=== PATIENT | male | born 1990 | race Caucasian/White ===

== ENCOUNTER 2018-02-27 15:20 | Inpatient (IN) | payer OTHER, MEDICAID ==
[~2018-02-27] VITALS: Ht 167.6 cm; Wt 79.8 kg
[2018-02-27] MEDS ORDERED: DOCUSATE SODIUM 283 MG/5 ML MINI-ENEMA PR PRN (16:45)
[2018-02-27] MEDS ORDERED: ACETAMINOPHEN 325 MG TABLET GT PRN (16:45)
[2018-02-27] MEDS ORDERED: HYPROMELLOSE 0.5% 15 ML OPHTHALMIC SOLUTION OU PRN (17:15)
[2018-02-27 17:25] VITALS: BP 118/77
[2018-02-27 17:27] VITALS: BP 134/68
[2018-02-27] MEDS: BACLOFEN 10 MG TABLET GT SCH (21:25)
[2018-02-27] MEDS: DOCUSATE SODIUM 100 MG CAPSULE GT SCH (21:25)
[2018-02-27] MEDS: SENNA 187 MG TABLET GT SCH (21:25)
[2018-02-27] MEDS: CHLORHEXIDINE GLUCONATE 0.12% 15 ML UDCUP ORAL RINSE PO SCH (21:25)
[2018-02-27 23:15] VITALS: BP 131/77
[2018-02-27 23:42] LABS: APPEARANCE,URINE CLOUDY (CLEAR); BILIRUBIN,URINE NEGATIVE (NEGATIVE); GLUCOSE, URINE (UA) NEGATIVE (NEGATIVE); KETONES,URINE NEGATIVE (NEGATIVE); LEUKOCYTE ESTERASE ,URINE NEGATIVE (NEGATIVE); NITRATE,URINE POSITIVE (NEGATIVE); OCCULT BLOOD,URINE NEGATIVE (NEGATIVE); PROTEIN,URINE NEGATIVE (NEGATIVE); UROBILINOGEN,URINE 0.2 mg/dL (<=1.0)
[2018-02-27 23:53] LABS: RBC,URINE 0-2 /HPF (0-2)
[2018-02-27 23:54] LABS: BACTERIA,URINE Many /HPF (None Seen); SQUAMOUS EPITHELIAL CELL,UR None Seen /LPF (None Seen)
[2018-02-27 23:55] LABS: CALCIUM OXALATE CRYSTALS,UR Few /LPF (None Seen)
[2018-02-28 06:16] LABS: BASOPHILS % (AUTO) 0.5 % (0.0-2.0); EOSINOPHILS % (AUTO) 8.3 % (1.0-6.0); HEMATOCRIT 40.7 % (41-53); HEMOGLOBIN 13.9 g/dL (13.5-17.5); LYMPHOCYTES # (AUTO) 1.5 K/uL (1.0-4.8); LYMPHOCYTES % (AUTO) 19.3 % (22.0-44.0); MEAN CORPUSCULAR HGB CONC 34.1 G/dL (31.0-37.0); MEAN CORPUSCULAR VOLUME 85 fL (80-100); MONOCYTES # (AUTO) 0.5 K/uL (0.1-1.0); MONOCYTES % (AUTO) 6.6 % (2.0-9.0); NEUTROPHILS # (AUTO) 5.1 K/uL (1.8-7.7); NEUTROPHILS % (AUTO) 65.3 % (40.0-70.0); PLATELET COUNT (AUTO) 193 K/uL (150-450); RED BLOOD CELL COUNT(AUTO) 4.78 MIL/uL (4.50-5.90); RED CELL DISTRIBUTION WIDTH 14.5 % (11.5-14.5)
[2018-02-28 06:33] LABS: ALANINE AMINOTRANSFERASE 105 U/L (12-78); ALBUMIN 3.3 g/dL (3.4-5.0); ALKALINE PHOSPHATASE 75 U/L (46-116); ANION GAP 9 mmol/L (8-16); ASPARTATE AMINOTRANSFERASE 30 U/L (15-37); BILIRUBIN,TOTAL 0.3 mg/dL (0.1-1.0); CALCIUM, TOTAL 9.2 mg/dL (8.8-10.5); CARBON DIOXIDE 26 mmol/L (22-29); CHLORIDE 105 mmol/L (98-107); CREATININE 0.66 mg/dL (0.60-1.30); GLOMERULAR FILTR. RATE CALC > 60 mL/min (>60); GLUCOSE,RANDOM 95 mg/dL (70-110); SODIUM SERUM 140 mmol/L (136-145); TOTAL PROTEIN, SERUM 6.9 g/dL (6.4-8.2); UREA NITROGEN, BLOOD 12 mg/dL (7-18)
[2018-02-28 07:21] VITALS: BP 130/74
[2018-02-28] MEDS ORDERED: ASPIRIN 81 MG CHEWABLE TABLET GT SCH (09:00)
[2018-02-28] MEDS ORDERED: ENOXAPARIN SODIUM 30 MG/0.3 ML PF SYRINGE SQ SCH (09:00)
[2018-02-28] MEDS ORDERED: ATORVASTATIN CALCIUM 40 MG TABLET GT SCH (09:00)
[2018-02-28] MEDS: DOCUSATE SODIUM 100 MG CAPSULE GT SCH ×2 (09:30→20:35)
[2018-02-28] MEDS: BACLOFEN 10 MG TABLET GT SCH ×3 (09:31→20:35)
[2018-02-28] MEDS: CHLORHEXIDINE GLUCONATE 0.12% 15 ML UDCUP ORAL RINSE PO SCH ×2 (09:31→20:35)
[2018-02-28] MEDS: ENOXAPARIN SODIUM 40 MG/0.4 ML PF SYRINGE SQ SCH (09:31)
[2018-02-28] MEDS: SULFAMETHOX/TRIMETH DS 800-160 MG/TABLET PO SCH ×2 (14:22→20:35)
[2018-02-28 15:24] VITALS: BP 140/90
[2018-02-28] MEDS: DOCUSATE SODIUM 283 MG/5 ML MINI-ENEMA PR SCH (18:27)
[2018-02-28 20:31] VITALS: BP 131/80
[2018-02-28] MEDS: SENNA 187 MG TABLET GT SCH (20:35)
[2018-02-28] MEDS: COLD CREAM, SKIN EMOLLIENT 340 GM JAR TP SCH (20:35)
[2018-02-28 23:38] VITALS: BP 150/86
[2018-03-01 07:13] VITALS: BP 137/83
[2018-03-01] MEDS ORDERED: BACLOFEN 10 MG TABLET PO SCH (07:45)
[2018-03-01] MEDS ORDERED: DOCUSATE SODIUM 100 MG CAPSULE PO SCH (07:45)
[2018-03-01] MEDS: SULFAMETHOX/TRIMETH DS 800-160 MG/TABLET PO SCH ×2 (08:06→21:12)
[2018-03-01] MEDS: CHLORHEXIDINE GLUCONATE 0.12% 15 ML UDCUP ORAL RINSE PO SCH ×2 (08:07→21:12)
[2018-03-01] MEDS: ATORVASTATIN CALCIUM 40 MG TABLET PO SCH (08:07)
[2018-03-01] MEDS: ASPIRIN 81 MG CHEWABLE TABLET PO SCH (08:07)
[2018-03-01] MEDS: ENOXAPARIN SODIUM 40 MG/0.4 ML PF SYRINGE SQ SCH (08:08)
[2018-03-01] MEDS: COLD CREAM, SKIN EMOLLIENT 340 GM JAR TP SCH ×2 (08:09→21:13)
[2018-03-01 15:35] VITALS: BP 150/84
[2018-03-01] MEDS: BACLOFEN 10 MG TABLET PO SCH ×2 (16:51→21:12)
[2018-03-01] MEDS: DOCUSATE SODIUM 283 MG/5 ML MINI-ENEMA PR SCH (18:41)
[2018-03-01] MEDS ORDERED: CefTRIAXone SODIUM 1 GM in DEXTROSE 5%-WATER 10 ML IV SCH (20:00)
[2018-03-01] MEDS ORDERED: SODIUM CHLORIDE 0.9% 0 ML IV ONE (20:10)
[2018-03-01 21:00] VITALS: BP 130/70
[2018-03-01] MEDS: DOCUSATE SODIUM 250 MG CAPSULE PO SCH (21:12)
[2018-03-01] MEDS: SENNA 187 MG TABLET PO SCH (21:12)
[2018-03-01] MEDS: ACETAMINOPHEN 325 MG TABLET GT PRN (21:13)
[2018-03-01] MEDS: ACETAMINOPHEN 325 MG TABLET PO PRN (22:34)
[2018-03-02 04:00] VITALS: BP 139/81
[2018-03-02 06:39] LABS: LACTIC ACID 0.9 mmol/L (0.4-2.0)
[2018-03-02 07:26] VITALS: BP 134/78
[2018-03-02] MEDS ORDERED: SODIUM CHLORIDE 0.9% 100 ML ONE ×2 (07:58→18:26)
[2018-03-02] MEDS: ENOXAPARIN SODIUM 40 MG/0.4 ML PF SYRINGE SQ SCH (08:15)
[2018-03-02] MEDS: CHLORHEXIDINE GLUCONATE 0.12% 15 ML UDCUP ORAL RINSE PO SCH ×2 (08:15→20:52)
[2018-03-02] MEDS: ATORVASTATIN CALCIUM 40 MG TABLET PO SCH (08:15)
[2018-03-02] MEDS: BACLOFEN 10 MG TABLET PO SCH ×3 (08:16→20:52)
[2018-03-02] MEDS: DOCUSATE SODIUM 250 MG CAPSULE PO SCH ×2 (08:16→21:00)
[2018-03-02] MEDS: ASPIRIN 81 MG CHEWABLE TABLET PO SCH (08:16)
[2018-03-02] MEDS: COLD CREAM, SKIN EMOLLIENT 340 GM JAR TP SCH ×2 (08:17→20:53)
[2018-03-02] MEDS: PIPERACILLIN/TAZO 3.375 GM/D5W 50 ML IV SCH ×3 (09:38→20:52)
[2018-03-02] MEDS ORDERED: SODIUM CHLORIDE 0.9% 500 ML IV ONE (15:54)
[2018-03-02] MEDS: 0.9% SODIUM CHLORIDE 10 ML SYRINGE IVP SCH ×2 (16:08→23:26)
[2018-03-02 16:51] VITALS: BP 134/79
[2018-03-02] MEDS: DOCUSATE SODIUM 283 MG/5 ML MINI-ENEMA PR SCH (18:00)
[2018-03-02] MEDS ORDERED: IOVERSOL 350 MG/ML 100 ML VIAL ONE (18:26)
[2018-03-02] MEDS: SENNA 187 MG TABLET PO SCH (21:00)
[2018-03-02 23:20] VITALS: BP 140/67
[2018-03-03] MEDS: PIPERACILLIN/TAZO 3.375 GM/D5W 50 ML IV SCH ×4 (02:00→19:57)
[2018-03-03] MEDS: ACETAMINOPHEN 325 MG TABLET PO PRN (02:46)
[2018-03-03 06:18] LABS: BASOPHILS % (AUTO) 0.4 % (0.0-2.0); HEMOGLOBIN 13.3 g/dL (13.5-17.5); LYMPHOCYTES # (AUTO) 0.7 K/uL (1.0-4.8); LYMPHOCYTES % (AUTO) 15.4 % (22.0-44.0); MEAN CORPUSCULAR HEMOGLOBIN 28.4 pg (26.0-34.0); MEAN CORPUSCULAR HGB CONC 33.4 G/dL (31.0-37.0); MEAN CORPUSCULAR VOLUME 85 fL (80-100); MONOCYTES # (AUTO) 0.6 K/uL (0.1-1.0); MONOCYTES % (AUTO) 11.7 % (2.0-9.0); NEUTROPHILS # (AUTO) 2.3 K/uL (1.8-7.7); NEUTROPHILS % (AUTO) 46.7 % (40.0-70.0); PLATELET COUNT (AUTO) 179 K/uL (150-450); RED CELL DISTRIBUTION WIDTH 14.3 % (11.5-14.5)
[2018-03-03 06:31] LABS: ALANINE AMINOTRANSFERASE 99 U/L (12-78); ALBUMIN 3.1 g/dL (3.4-5.0); ALKALINE PHOSPHATASE 69 U/L (46-116); ANION GAP 10 mmol/L (8-16); ASPARTATE AMINOTRANSFERASE 38 U/L (15-37); BILIRUBIN,TOTAL 0.3 mg/dL (0.1-1.0); CARBON DIOXIDE 25 mmol/L (22-29); CHLORIDE 105 mmol/L (98-107); CREATININE 0.76 mg/dL (0.60-1.30); GLOMERULAR FILTR. RATE CALC > 60 mL/min (>60); GLUCOSE,RANDOM 99 mg/dL (70-110); POTASSIUM 3.6 mmol/L (3.5-5.1); SODIUM SERUM 140 mmol/L (136-145); TOTAL PROTEIN, SERUM 6.7 g/dL (6.4-8.2); UREA NITROGEN, BLOOD 13 mg/dL (7-18)
[2018-03-03 07:29] LABS: EOSINOPHILS % (AUTO) 25.8 % (1.0-6.0)
[2018-03-03 07:55] VITALS: BP 116/76
[2018-03-03] MEDS: 0.9% SODIUM CHLORIDE 10 ML SYRINGE IVP SCH ×3 (09:28→23:56)
[2018-03-03] MEDS: CHLORHEXIDINE GLUCONATE 0.12% 15 ML UDCUP ORAL RINSE PO SCH ×2 (09:42→19:58)
[2018-03-03] MEDS: BACLOFEN 10 MG TABLET PO SCH ×3 (09:43→20:27)
[2018-03-03] MEDS: DOCUSATE SODIUM 250 MG CAPSULE PO SCH ×2 (09:43→20:27)
[2018-03-03] MEDS: ATORVASTATIN CALCIUM 40 MG TABLET PO SCH (09:43)
[2018-03-03] MEDS: ASPIRIN 81 MG CHEWABLE TABLET PO SCH (09:43)
[2018-03-03] MEDS: ENOXAPARIN SODIUM 40 MG/0.4 ML PF SYRINGE SQ SCH (09:43)
[2018-03-03] MEDS: COLD CREAM, SKIN EMOLLIENT 340 GM JAR TP SCH ×2 (09:45→20:27)
[2018-03-03 15:35] VITALS: BP 127/63
[2018-03-03] MEDS: DOCUSATE SODIUM 283 MG/5 ML MINI-ENEMA PR SCH ×2 (18:00→18:58)
[2018-03-03] MEDS: SENNA 187 MG TABLET PO SCH (20:27)
[2018-03-04 01:20] VITALS: BP 130/62
[2018-03-04] MEDS: PIPERACILLIN/TAZO 3.375 GM/D5W 50 ML IV SCH ×4 (01:25→19:18)
[2018-03-04 07:22] VITALS: BP 136/64
[2018-03-04] MEDS ORDERED: SODIUM CHLORIDE 0.9% 100 ML ONE (08:32)
[2018-03-04] MEDS: ATORVASTATIN CALCIUM 40 MG TABLET PO SCH (08:38)
[2018-03-04] MEDS: 0.9% SODIUM CHLORIDE 10 ML SYRINGE IVP SCH ×2 (08:38→17:05)
[2018-03-04] MEDS: CHLORHEXIDINE GLUCONATE 0.12% 15 ML UDCUP ORAL RINSE PO SCH ×3 (08:38→21:00)
[2018-03-04] MEDS: ENOXAPARIN SODIUM 40 MG/0.4 ML PF SYRINGE SQ SCH (08:38)
[2018-03-04] MEDS: BACLOFEN 10 MG TABLET PO SCH ×3 (08:39→21:01)
[2018-03-04] MEDS: ASPIRIN 81 MG CHEWABLE TABLET PO SCH (08:39)
[2018-03-04] MEDS: DOCUSATE SODIUM 250 MG CAPSULE PO SCH ×2 (08:39→21:01)
[2018-03-04] MEDS: COLD CREAM, SKIN EMOLLIENT 340 GM JAR TP SCH ×2 (08:43→21:01)
[2018-03-04] MEDS: ACETAMINOPHEN 325 MG TABLET GT PRN (11:21)
[2018-03-04 15:50] VITALS: BP 122/73
[2018-03-04] MEDS: DOCUSATE SODIUM 283 MG/5 ML MINI-ENEMA PR SCH (17:05)
[2018-03-04] MEDS: SENNA 187 MG TABLET PO SCH (21:00)
[2018-03-05 01:37] VITALS: BP 115/69
[2018-03-05] MEDS: PIPERACILLIN/TAZO 3.375 GM/D5W 50 ML IV SCH ×2 (01:37→08:50)
[2018-03-05] MEDS: 0.9% SODIUM CHLORIDE 10 ML SYRINGE IVP SCH ×2 (01:37→08:50)
[2018-03-05 07:18] VITALS: BP 141/86
[2018-03-05] MEDS: ENOXAPARIN SODIUM 40 MG/0.4 ML PF SYRINGE SQ SCH (08:50)
[2018-03-05] MEDS: COLD CREAM, SKIN EMOLLIENT 340 GM JAR TP SCH ×2 (08:51→20:59)
[2018-03-05] MEDS: CHLORHEXIDINE GLUCONATE 0.12% 15 ML UDCUP ORAL RINSE PO SCH ×2 (08:51→20:58)
[2018-03-05] MEDS: ATORVASTATIN CALCIUM 40 MG TABLET PO SCH (08:51)
[2018-03-05] MEDS: BACLOFEN 10 MG TABLET PO SCH ×3 (08:51→20:59)
[2018-03-05] MEDS: DOCUSATE SODIUM 250 MG CAPSULE PO SCH ×2 (08:51→20:59)
[2018-03-05] MEDS: ASPIRIN 81 MG CHEWABLE TABLET PO SCH (08:51)
[2018-03-05 16:01] VITALS: BP 126/71
[2018-03-05] MEDS: DOCUSATE SODIUM 283 MG/5 ML MINI-ENEMA PR SCH ×2 (18:00→18:56)
[2018-03-05] MEDS: SENNA 187 MG TABLET PO SCH (20:59)
[2018-03-05] MEDS: SULFAMETHOX/TRIMETH DS 800-160 MG/TABLET PO SCH (20:59)
[2018-03-06] VITALS (7 sets, daily range): BP systolic 106–149; BP diastolic 43–78
[2018-03-06] MEDS: CHLORHEXIDINE GLUCONATE 0.12% 15 ML UDCUP ORAL RINSE PO SCH ×2 (08:07→21:20)
[2018-03-06] MEDS: ACETAMINOPHEN 325 MG TABLET PO PRN ×2 (08:08→16:28)
[2018-03-06] MEDS: SULFAMETHOX/TRIMETH DS 800-160 MG/TABLET PO SCH (08:08)
[2018-03-06] MEDS: BACLOFEN 10 MG TABLET PO SCH ×3 (08:09→21:20)
[2018-03-06] MEDS: DOCUSATE SODIUM 250 MG CAPSULE PO SCH ×2 (08:09→21:20)
[2018-03-06] MEDS: ATORVASTATIN CALCIUM 40 MG TABLET PO SCH (08:09)
[2018-03-06] MEDS: ENOXAPARIN SODIUM 40 MG/0.4 ML PF SYRINGE SQ SCH (08:09)
[2018-03-06] MEDS: COLD CREAM, SKIN EMOLLIENT 340 GM JAR TP SCH ×2 (08:10→21:32)
[2018-03-06] MEDS: ASPIRIN 81 MG CHEWABLE TABLET PO SCH (08:10)
[2018-03-06] MEDS ORDERED: SODIUM CHLORIDE 0.9% 250 ML IV ONE (17:44)
[2018-03-06] MEDS ORDERED: PIPERACILLIN/TAZO 3.375 GM/D5W 50 ML IV SCH (18:00)
[2018-03-06] MEDS: CEFEPIME HCL 2 GM in DEXTROSE 5%-WATER 50 ML IV SCH (20:18)
[2018-03-06] MEDS: SENNA 187 MG TABLET PO SCH (21:20)
[2018-03-06] MEDS: DOCUSATE SODIUM 283 MG/5 ML MINI-ENEMA PR SCH (21:32)
[2018-03-06] MEDS: MetroNIDAZOLE 500 MG TABLET PO SCH (23:49)
[2018-03-07] MEDS: CEFEPIME HCL 2 GM in DEXTROSE 5%-WATER 50 ML IV SCH ×3 (03:04→19:38)
[2018-03-07 06:16] LABS: BASOPHILS % (AUTO) 0.2 % (0.0-2.0); EOSINOPHILS % (AUTO) 13.2 % (1.0-6.0); HEMATOCRIT 41.8 % (41-53); HEMOGLOBIN 14.1 g/dL (13.5-17.5); LYMPHOCYTES # (AUTO) 0.8 K/uL (1.0-4.8); LYMPHOCYTES % (AUTO) 10.4 % (22.0-44.0); MEAN CORPUSCULAR HEMOGLOBIN 28.8 pg (26.0-34.0); MEAN CORPUSCULAR HGB CONC 33.6 G/dL (31.0-37.0); MEAN CORPUSCULAR VOLUME 86 fL (80-100); MONOCYTES # (AUTO) 0.6 K/uL (0.1-1.0); MONOCYTES % (AUTO) 7.8 % (2.0-9.0); NEUTROPHILS % (AUTO) 68.4 % (40.0-70.0); PLATELET COUNT (AUTO) 170 K/uL (150-450); RED BLOOD CELL COUNT(AUTO) 4.88 MIL/uL (4.50-5.90); RED CELL DISTRIBUTION WIDTH 14.5 % (11.5-14.5)
[2018-03-07 06:37] LABS: ALANINE AMINOTRANSFERASE 130 U/L (12-78); ALBUMIN 3.2 g/dL (3.4-5.0); ALKALINE PHOSPHATASE 63 U/L (46-116); ANION GAP 11 mmol/L (8-16); ASPARTATE AMINOTRANSFERASE 47 U/L (15-37); BILIRUBIN,TOTAL 0.5 mg/dL (0.1-1.0); CALCIUM, TOTAL 8.7 mg/dL (8.8-10.5); CARBON DIOXIDE 24 mmol/L (22-29); CHLORIDE 102 mmol/L (98-107); CREATININE 0.65 mg/dL (0.60-1.30); GLOMERULAR FILTR. RATE CALC > 60 mL/min (>60); GLUCOSE,RANDOM 113 mg/dL (70-110); POTASSIUM 3.4 mmol/L (3.5-5.1); SODIUM SERUM 137 mmol/L (136-145); TOTAL PROTEIN, SERUM 6.8 g/dL (6.4-8.2); UREA NITROGEN, BLOOD 8 mg/dL (7-18)
[2018-03-07 07:11] VITALS: BP 127/75
[2018-03-07] MEDS: CHLORHEXIDINE GLUCONATE 0.12% 15 ML UDCUP ORAL RINSE PO SCH ×2 (08:52→20:18)
[2018-03-07] MEDS: BACLOFEN 10 MG TABLET PO SCH ×3 (08:52→20:18)
[2018-03-07] MEDS: ATORVASTATIN CALCIUM 40 MG TABLET PO SCH (08:53)
[2018-03-07] MEDS: ASPIRIN 81 MG CHEWABLE TABLET PO SCH (08:53)
[2018-03-07] MEDS: MetroNIDAZOLE 500 MG TABLET PO SCH ×3 (08:53→23:20)
[2018-03-07] MEDS: COLD CREAM, SKIN EMOLLIENT 340 GM JAR TP SCH ×2 (08:53→20:19)
[2018-03-07] MEDS: DOCUSATE SODIUM 250 MG CAPSULE PO SCH ×2 (08:53→20:18)
[2018-03-07] MEDS: ENOXAPARIN SODIUM 40 MG/0.4 ML PF SYRINGE SQ SCH (08:53)
[2018-03-07] MEDS ORDERED: POTASSIUM CHLORIDE 20 MEQ ER TABLET PO ONE (14:00)
[2018-03-07 16:25] VITALS: BP 141/82
[2018-03-07] MEDS: DOCUSATE SODIUM 283 MG/5 ML MINI-ENEMA PR SCH (19:17)
[2018-03-07] MEDS: SENNA 187 MG TABLET PO SCH (20:18)
[2018-03-08 00:48] VITALS: BP 111/72
[2018-03-08] MEDS: CEFEPIME HCL 2 GM in DEXTROSE 5%-WATER 50 ML IV SCH ×3 (03:18→20:27)
[2018-03-08 07:13] VITALS: BP 147/82
[2018-03-08] MEDS: ENOXAPARIN SODIUM 40 MG/0.4 ML PF SYRINGE SQ SCH (09:01)
[2018-03-08] MEDS: DOCUSATE SODIUM 250 MG CAPSULE PO SCH ×2 (09:01→20:27)
[2018-03-08] MEDS: ATORVASTATIN CALCIUM 40 MG TABLET PO SCH (09:01)
[2018-03-08] MEDS: CHLORHEXIDINE GLUCONATE 0.12% 15 ML UDCUP ORAL RINSE PO SCH ×2 (09:01→20:27)
[2018-03-08] MEDS: BACLOFEN 10 MG TABLET PO SCH ×3 (09:02→20:27)
[2018-03-08] MEDS: ASPIRIN 81 MG CHEWABLE TABLET PO SCH (09:02)
[2018-03-08] MEDS: MetroNIDAZOLE 500 MG TABLET PO SCH ×3 (09:02→20:27)
[2018-03-08] MEDS: COLD CREAM, SKIN EMOLLIENT 340 GM JAR TP SCH ×2 (09:02→20:28)
[2018-03-08 16:02] VITALS: BP 141/77
[2018-03-08] MEDS: DOCUSATE SODIUM 283 MG/5 ML MINI-ENEMA PR SCH (19:15)
[2018-03-08] MEDS: SENNA 187 MG TABLET PO SCH (20:27)
[2018-03-09 01:00] VITALS: BP 125/71
[2018-03-09] MEDS: CEFEPIME HCL 2 GM in DEXTROSE 5%-WATER 50 ML IV SCH ×3 (03:16→19:40)
[2018-03-09 07:40] VITALS: BP 117/61
[2018-03-09] MEDS: MetroNIDAZOLE 500 MG TABLET PO SCH ×3 (09:22→20:49)
[2018-03-09] MEDS: CHLORHEXIDINE GLUCONATE 0.12% 15 ML UDCUP ORAL RINSE PO SCH ×2 (09:22→20:49)
[2018-03-09] MEDS: ENOXAPARIN SODIUM 40 MG/0.4 ML PF SYRINGE SQ SCH (09:22)
[2018-03-09] MEDS: DOCUSATE SODIUM 250 MG CAPSULE PO SCH ×2 (09:23→20:49)
[2018-03-09] MEDS: ATORVASTATIN CALCIUM 40 MG TABLET PO SCH (09:23)
[2018-03-09] MEDS: BACLOFEN 10 MG TABLET PO SCH ×3 (09:23→20:49)
[2018-03-09] MEDS: COLD CREAM, SKIN EMOLLIENT 340 GM JAR TP SCH ×2 (09:24→20:50)
[2018-03-09] MEDS: ASPIRIN 81 MG CHEWABLE TABLET PO SCH (09:24)
[2018-03-09] MEDS: ACETAMINOPHEN 325 MG TABLET GT PRN (10:16)
[2018-03-09] MEDS ORDERED: SODIUM CHLORIDE 0.9% 0 ML IV ONE (12:30)
[2018-03-09 15:06] VITALS: BP 141/60
[2018-03-09] MEDS ORDERED: SODIUM CHLORIDE 0.9% 100 ML ONE (16:04)
[2018-03-09] MEDS: DOCUSATE SODIUM 283 MG/5 ML MINI-ENEMA PR SCH (19:10)
[2018-03-09] MEDS: SENNA 187 MG TABLET PO SCH (20:50)
[2018-03-10 02:20] VITALS: BP 133/79
[2018-03-10] MEDS: CEFEPIME HCL 2 GM in DEXTROSE 5%-WATER 50 ML IV SCH ×3 (02:38→19:43)
[2018-03-10 07:55] VITALS: BP 121/59
[2018-03-10] MEDS: ASPIRIN 81 MG CHEWABLE TABLET PO SCH (08:18)
[2018-03-10] MEDS: BACLOFEN 10 MG TABLET PO SCH ×3 (08:18→20:26)
[2018-03-10] MEDS: ATORVASTATIN CALCIUM 40 MG TABLET PO SCH (08:18)
[2018-03-10] MEDS: DOCUSATE SODIUM 250 MG CAPSULE PO SCH ×2 (08:20→20:26)
[2018-03-10] MEDS: ENOXAPARIN SODIUM 40 MG/0.4 ML PF SYRINGE SQ SCH (08:20)
[2018-03-10] MEDS: MetroNIDAZOLE 500 MG TABLET PO SCH ×3 (08:20→20:26)
[2018-03-10] MEDS: CHLORHEXIDINE GLUCONATE 0.12% 15 ML UDCUP ORAL RINSE PO SCH ×2 (08:20→20:26)
[2018-03-10] MEDS: COLD CREAM, SKIN EMOLLIENT 340 GM JAR TP SCH ×2 (08:21→20:27)
[2018-03-10 15:09] VITALS: BP 118/66
[2018-03-10] MEDS: 0.9% SODIUM CHLORIDE 10 ML SYRINGE IVP SCH ×3 (16:00→23:15)
[2018-03-10] MEDS ORDERED: SODIUM CHLORIDE 0.9% 100 ML ONE (18:27)
[2018-03-10] MEDS: DOCUSATE SODIUM 283 MG/5 ML MINI-ENEMA PR SCH (18:34)
[2018-03-10] MEDS: SENNA 187 MG TABLET PO SCH (20:26)
[2018-03-11 00:05] VITALS: BP 110/65
[2018-03-11] MEDS: CEFEPIME HCL 2 GM in DEXTROSE 5%-WATER 50 ML IV SCH ×3 (03:12→19:45)
[2018-03-11 07:58] VITALS: BP 113/63
[2018-03-11 08:02] LABS: CHOL/HDL RATIO 2.3 (4.2-7.3)
[2018-03-11] MEDS: MetroNIDAZOLE 500 MG TABLET PO SCH ×3 (08:31→20:48)
[2018-03-11] MEDS: DOCUSATE SODIUM 250 MG CAPSULE PO SCH (08:31)
[2018-03-11] MEDS: ATORVASTATIN CALCIUM 40 MG TABLET PO SCH (08:31)
[2018-03-11] MEDS: ENOXAPARIN SODIUM 40 MG/0.4 ML PF SYRINGE SQ SCH (08:31)
[2018-03-11] MEDS: ASPIRIN 81 MG CHEWABLE TABLET PO SCH (08:32)
[2018-03-11] MEDS: CHLORHEXIDINE GLUCONATE 0.12% 15 ML UDCUP ORAL RINSE PO SCH ×2 (08:32→20:48)
[2018-03-11] MEDS: BACLOFEN 10 MG TABLET PO SCH ×3 (08:32→20:48)
[2018-03-11] MEDS: ACETAMINOPHEN 325 MG TABLET PO PRN (08:33)
[2018-03-11] MEDS: COLD CREAM, SKIN EMOLLIENT 340 GM JAR TP SCH ×2 (08:33→20:49)
[2018-03-11] MEDS: 0.9% SODIUM CHLORIDE 10 ML SYRINGE IVP SCH ×3 (08:36→23:58)
[2018-03-11 15:43] VITALS: BP 127/76
[2018-03-11] MEDS ORDERED: SODIUM CHLORIDE 0.9% 100 ML ONE (18:33)
[2018-03-11] MEDS: DOCUSATE SODIUM 283 MG/5 ML MINI-ENEMA PR SCH (18:39)
[2018-03-11] MEDS: DOCUSATE SODIUM 100 MG CAPSULE PO SCH (20:48)
[2018-03-12 00:30] VITALS: BP 117/65
[2018-03-12] MEDS: ACETAMINOPHEN 325 MG TABLET PO PRN ×3 (00:31→14:48)
[2018-03-12 07:12] LABS: ALANINE AMINOTRANSFERASE 274 U/L (12-78); ALBUMIN 3.4 g/dL (3.4-5.0); ALKALINE PHOSPHATASE 63 U/L (46-116); ANION GAP 9 mmol/L (8-16); ASPARTATE AMINOTRANSFERASE 93 U/L (15-37); BILIRUBIN,TOTAL 0.4 mg/dL (0.1-1.0); CALCIUM, TOTAL 9.1 mg/dL (8.8-10.5); CARBON DIOXIDE 26 mmol/L (22-29); CHLORIDE 106 mmol/L (98-107); CREATININE 0.62 mg/dL (0.60-1.30); GLOMERULAR FILTR. RATE CALC > 60 mL/min (>60); GLUCOSE,RANDOM 100 mg/dL (70-110); POTASSIUM 3.9 mmol/L (3.5-5.1); SODIUM SERUM 141 mmol/L (136-145); TOTAL PROTEIN, SERUM 6.7 g/dL (6.4-8.2); UREA NITROGEN, BLOOD 9 mg/dL (7-18)
[2018-03-12 07:25] VITALS: BP 133/73
[2018-03-12] MEDS: ATORVASTATIN CALCIUM 40 MG TABLET PO SCH (09:10)
[2018-03-12] MEDS: DOCUSATE SODIUM 100 MG CAPSULE PO SCH ×2 (09:10→21:06)
[2018-03-12] MEDS: ASPIRIN 81 MG CHEWABLE TABLET PO SCH (09:11)
[2018-03-12] MEDS: CHLORHEXIDINE GLUCONATE 0.12% 15 ML UDCUP ORAL RINSE PO SCH ×2 (09:12→21:06)
[2018-03-12] MEDS: 0.9% SODIUM CHLORIDE 10 ML SYRINGE IVP SCH ×2 (09:12→16:27)
[2018-03-12] MEDS: ENOXAPARIN SODIUM 40 MG/0.4 ML PF SYRINGE SQ SCH (09:12)
[2018-03-12] MEDS: BACLOFEN 10 MG TABLET PO SCH ×3 (09:13→21:06)
[2018-03-12] MEDS: COLD CREAM, SKIN EMOLLIENT 340 GM JAR TP SCH ×2 (09:13→21:06)
[2018-03-12 15:12] VITALS: BP 122/73
[2018-03-12] MEDS: DICLOFENAC SODIUM 1% 100 GM GEL [4GM] TP SCH ×2 (16:16→21:06)
[2018-03-12] MEDS: DOCUSATE SODIUM 283 MG/5 ML MINI-ENEMA PR SCH (18:48)
[2018-03-13] MEDS: 0.9% SODIUM CHLORIDE 10 ML SYRINGE IVP SCH ×4 (01:21→23:43)
[2018-03-13 01:25] VITALS: BP 118/63
[2018-03-13 07:35] VITALS: BP 121/64
[2018-03-13] MEDS: BACLOFEN 10 MG TABLET PO SCH ×3 (08:18→20:16)
[2018-03-13] MEDS: ENOXAPARIN SODIUM 40 MG/0.4 ML PF SYRINGE SQ SCH (08:18)
[2018-03-13] MEDS: DOCUSATE SODIUM 100 MG CAPSULE PO SCH (08:19)
[2018-03-13] MEDS: ATORVASTATIN CALCIUM 40 MG TABLET PO SCH (08:19)
[2018-03-13] MEDS: COLD CREAM, SKIN EMOLLIENT 340 GM JAR TP SCH ×2 (08:19→20:16)
[2018-03-13] MEDS: CHLORHEXIDINE GLUCONATE 0.12% 15 ML UDCUP ORAL RINSE PO SCH ×2 (08:19→20:15)
[2018-03-13] MEDS: DICLOFENAC SODIUM 1% 100 GM GEL [4GM] TP SCH ×3 (08:19→20:16)
[2018-03-13] MEDS: ASPIRIN 81 MG CHEWABLE TABLET PO SCH (08:19)
[2018-03-13 15:39] VITALS: BP 127/70
[2018-03-13] MEDS: ACETAMINOPHEN 325 MG TABLET GT PRN ×2 (16:08→21:49)
[2018-03-13] MEDS: ACETAMINOPHEN 325 MG TABLET PO PRN (16:36)
[2018-03-13] MEDS: DOCUSATE SODIUM 283 MG/5 ML MINI-ENEMA PR SCH (18:43)
[2018-03-14] VITALS: BP 121/58
[2018-03-14 07:34] VITALS: BP 127/76
[2018-03-14] MEDS: POLYETHYLENE GLYCOL 3350 17 GM PACKET PO SCH (08:42)
[2018-03-14] MEDS: DICLOFENAC SODIUM 1% 100 GM GEL [4GM] TP SCH ×3 (08:42→20:22)
[2018-03-14] MEDS: CHLORHEXIDINE GLUCONATE 0.12% 15 ML UDCUP ORAL RINSE PO SCH ×2 (08:43→20:22)
[2018-03-14] MEDS: DOCUSATE SODIUM 100 MG CAPSULE PO SCH (08:43)
[2018-03-14] MEDS: ATORVASTATIN CALCIUM 40 MG TABLET PO SCH (08:43)
[2018-03-14] MEDS: ASPIRIN 81 MG CHEWABLE TABLET PO SCH (08:43)
[2018-03-14] MEDS: BACLOFEN 10 MG TABLET PO SCH ×3 (08:43→20:22)
[2018-03-14] MEDS: COLD CREAM, SKIN EMOLLIENT 340 GM JAR TP SCH ×2 (08:44→20:22)
[2018-03-14] MEDS: ENOXAPARIN SODIUM 40 MG/0.4 ML PF SYRINGE SQ SCH (08:46)
[2018-03-14 15:25] VITALS: BP 107/77
[2018-03-14] MEDS: ACETAMINOPHEN 325 MG TABLET GT PRN (15:43)
[2018-03-14] MEDS: DOCUSATE SODIUM 283 MG/5 ML MINI-ENEMA PR SCH (18:30)
[2018-03-15 00:52] VITALS: BP 123/72
[2018-03-15 07:20] VITALS: BP 132/65
[2018-03-15] MEDS: DOCUSATE SODIUM 100 MG CAPSULE PO SCH (09:00)
[2018-03-15] MEDS: POLYETHYLENE GLYCOL 3350 17 GM PACKET PO SCH (09:00)
[2018-03-15] MEDS: ATORVASTATIN CALCIUM 40 MG TABLET PO SCH (09:01)
[2018-03-15] MEDS: ENOXAPARIN SODIUM 40 MG/0.4 ML PF SYRINGE SQ SCH (09:01)
[2018-03-15] MEDS: ASPIRIN 81 MG CHEWABLE TABLET PO SCH (09:01)
[2018-03-15] MEDS: CHLORHEXIDINE GLUCONATE 0.12% 15 ML UDCUP ORAL RINSE PO SCH ×2 (09:02→20:37)
[2018-03-15] MEDS: BACLOFEN 10 MG TABLET PO SCH ×3 (09:02→20:37)
[2018-03-15] MEDS: DICLOFENAC SODIUM 1% 100 GM GEL [4GM] TP SCH ×3 (09:02→20:38)
[2018-03-15] MEDS: COLD CREAM, SKIN EMOLLIENT 340 GM JAR TP SCH ×2 (09:02→20:38)
[2018-03-15 16:11] VITALS: BP 124/77
[2018-03-15] MEDS: DOCUSATE SODIUM 283 MG/5 ML MINI-ENEMA PR SCH (19:41)
[2018-03-16] VITALS: BP 121/65
[2018-03-16 07:15] VITALS: BP 120/73
[2018-03-16] MEDS: DOCUSATE SODIUM 100 MG CAPSULE PO SCH (07:58)
[2018-03-16] MEDS: POLYETHYLENE GLYCOL 3350 17 GM PACKET PO SCH (07:58)
[2018-03-16] MEDS: COLD CREAM, SKIN EMOLLIENT 340 GM JAR TP SCH ×2 (07:59→20:21)
[2018-03-16] MEDS: CHLORHEXIDINE GLUCONATE 0.12% 15 ML UDCUP ORAL RINSE PO SCH ×2 (07:59→20:20)
[2018-03-16] MEDS: ATORVASTATIN CALCIUM 40 MG TABLET PO SCH (07:59)
[2018-03-16] MEDS: BACLOFEN 10 MG TABLET PO SCH ×3 (07:59→20:21)
[2018-03-16] MEDS: ASPIRIN 81 MG CHEWABLE TABLET PO SCH (07:59)
[2018-03-16] MEDS: ENOXAPARIN SODIUM 40 MG/0.4 ML PF SYRINGE SQ SCH (08:00)
[2018-03-16] MEDS: DICLOFENAC SODIUM 1% 100 GM GEL [4GM] TP SCH ×3 (08:00→20:21)
[2018-03-16 15:00] VITALS: BP 118/65
[2018-03-16] MEDS: ACETAMINOPHEN 325 MG TABLET GT PRN (17:19)
[2018-03-16] MEDS: DOCUSATE SODIUM 283 MG/5 ML MINI-ENEMA PR SCH (19:16)
[2018-03-16 20:30] VITALS: BP 120/76
[2018-03-16] MEDS: ACETAMINOPHEN 325 MG TABLET PO PRN (20:32)
[2018-03-17 06:07] VITALS: BP 128/82
[2018-03-17 06:41] LABS: ALANINE AMINOTRANSFERASE 346 U/L (12-78); ALBUMIN 3.6 g/dL (3.4-5.0); ALKALINE PHOSPHATASE 62 U/L (46-116); ANION GAP 9 mmol/L (8-16); ASPARTATE AMINOTRANSFERASE 76 U/L (15-37); BILIRUBIN,TOTAL 0.5 mg/dL (0.1-1.0); CALCIUM, TOTAL 9.5 mg/dL (8.8-10.5); CARBON DIOXIDE 29 mmol/L (22-29); CHLORIDE 104 mmol/L (98-107); CREATININE 0.68 mg/dL (0.60-1.30); GLOMERULAR FILTR. RATE CALC > 60 mL/min (>60); GLUCOSE,RANDOM 90 mg/dL (70-110); POTASSIUM 3.8 mmol/L (3.5-5.1); SODIUM SERUM 142 mmol/L (136-145); TOTAL PROTEIN, SERUM 7.1 g/dL (6.4-8.2); UREA NITROGEN, BLOOD 11 mg/dL (7-18)
[2018-03-17 06:47] LABS: PROTHROMBIN TIME 10.8 SEC (9.4-11.6)
[2018-03-17 07:52] VITALS: BP 150/80
[2018-03-17] MEDS: ENOXAPARIN SODIUM 40 MG/0.4 ML PF SYRINGE SQ SCH (08:12)
[2018-03-17] MEDS: CHLORHEXIDINE GLUCONATE 0.12% 15 ML UDCUP ORAL RINSE PO SCH ×2 (08:12→20:18)
[2018-03-17] MEDS: BACLOFEN 10 MG TABLET PO SCH ×3 (08:13→20:19)
[2018-03-17] MEDS: POLYETHYLENE GLYCOL 3350 17 GM PACKET PO SCH (08:13)
[2018-03-17] MEDS: ATORVASTATIN CALCIUM 40 MG TABLET PO SCH (08:13)
[2018-03-17] MEDS: DOCUSATE SODIUM 100 MG CAPSULE PO SCH (08:14)
[2018-03-17] MEDS: NAPROXEN 375 MG TABLET PO SCH ×2 (08:14→13:11)
[2018-03-17] MEDS: ASPIRIN 81 MG CHEWABLE TABLET PO SCH (08:14)
[2018-03-17] MEDS: COLD CREAM, SKIN EMOLLIENT 340 GM JAR TP SCH ×2 (08:15→20:18)
[2018-03-17] MEDS: DICLOFENAC SODIUM 1% 100 GM GEL [4GM] TP SCH ×3 (08:15→20:18)
[2018-03-17] MEDS ORDERED: ATORVASTATIN CALCIUM 20 MG TABLET PO ONE (10:00)
[2018-03-17 15:36] VITALS: BP 123/66
[2018-03-17] MEDS: DOCUSATE SODIUM 283 MG/5 ML MINI-ENEMA PR SCH (19:27)
[2018-03-17] MEDS: ATORVASTATIN CALCIUM 20 MG TABLET PO SCH (21:29)
[2018-03-18] VITALS: BP 116/73
[2018-03-18 07:10] VITALS: BP 116/77
[2018-03-18] MEDS: NAPROXEN 375 MG TABLET PO SCH ×2 (08:28→11:03)
[2018-03-18] MEDS: CHLORHEXIDINE GLUCONATE 0.12% 15 ML UDCUP ORAL RINSE PO SCH ×2 (08:28→20:53)
[2018-03-18] MEDS: BACLOFEN 10 MG TABLET PO SCH ×3 (08:28→20:53)
[2018-03-18] MEDS: ASPIRIN 81 MG CHEWABLE TABLET PO SCH (08:28)
[2018-03-18] MEDS: POLYETHYLENE GLYCOL 3350 17 GM PACKET PO SCH ×2 (08:28→09:00)
[2018-03-18] MEDS: DICLOFENAC SODIUM 1% 100 GM GEL [4GM] TP SCH ×3 (08:28→20:53)
[2018-03-18] MEDS: DOCUSATE SODIUM 100 MG CAPSULE PO SCH (08:28)
[2018-03-18] MEDS: COLD CREAM, SKIN EMOLLIENT 340 GM JAR TP SCH ×2 (08:29→20:54)
[2018-03-18] MEDS: ENOXAPARIN SODIUM 40 MG/0.4 ML PF SYRINGE SQ SCH (08:30)
[2018-03-18] MEDS ORDERED: SODIUM CHLORIDE 0.9% 1,000 ML IV ONE ×3 (11:00→11:54)
[2018-03-18 13:30] VITALS: BP 122/82
[2018-03-18 15:38] VITALS: BP 120/83
[2018-03-18] MEDS: DOCUSATE SODIUM 283 MG/5 ML MINI-ENEMA PR SCH (18:24)
[2018-03-18] MEDS: ATORVASTATIN CALCIUM 20 MG TABLET PO SCH (20:53)
[2018-03-19] VITALS: BP 121/65
[2018-03-19 08:03] VITALS: BP 133/62
[2018-03-19] MEDS: NAPROXEN 375 MG TABLET PO SCH ×2 (08:05→12:34)
[2018-03-19] MEDS: DOCUSATE SODIUM 100 MG CAPSULE PO SCH (08:06)
[2018-03-19] MEDS: BACLOFEN 10 MG TABLET PO SCH ×3 (08:06→20:32)
[2018-03-19] MEDS: ASPIRIN 81 MG CHEWABLE TABLET PO SCH (08:06)
[2018-03-19] MEDS: POLYETHYLENE GLYCOL 3350 17 GM PACKET PO SCH (08:07)
[2018-03-19] MEDS: ENOXAPARIN SODIUM 40 MG/0.4 ML PF SYRINGE SQ SCH (08:07)
[2018-03-19] MEDS: CHLORHEXIDINE GLUCONATE 0.12% 15 ML UDCUP ORAL RINSE PO SCH ×2 (08:07→20:32)
[2018-03-19] MEDS: COLD CREAM, SKIN EMOLLIENT 340 GM JAR TP SCH ×2 (09:53→20:32)
[2018-03-19] MEDS: DICLOFENAC SODIUM 1% 100 GM GEL [4GM] TP SCH ×3 (09:53→20:33)
[2018-03-19] MEDS: OMEPRAZOLE 10 MG CAPSULE PO SCH (11:30)
[2018-03-19] MEDS ORDERED: OMEPRAZOLE 20 MG CAPSULE PO ONE (12:00)
[2018-03-19 15:58] VITALS: BP 110/79
[2018-03-19] MEDS: DOCUSATE SODIUM 283 MG/5 ML MINI-ENEMA PR SCH (18:26)
[2018-03-20 05:00] VITALS: BP 111/64
[2018-03-20 07:25] VITALS: BP 117/62
[2018-03-20] MEDS: POLYETHYLENE GLYCOL 3350 17 GM PACKET PO SCH (08:21)
[2018-03-20] MEDS: NAPROXEN 375 MG TABLET PO SCH ×2 (08:21→12:30)
[2018-03-20] MEDS: ENOXAPARIN SODIUM 40 MG/0.4 ML PF SYRINGE SQ SCH (08:21)
[2018-03-20] MEDS: DOCUSATE SODIUM 100 MG CAPSULE PO SCH (08:22)
[2018-03-20] MEDS: DICLOFENAC SODIUM 1% 100 GM GEL [4GM] TP SCH ×3 (08:22→21:20)
[2018-03-20] MEDS: BACLOFEN 10 MG TABLET PO SCH ×3 (08:22→21:20)
[2018-03-20] MEDS: ASPIRIN 81 MG CHEWABLE TABLET PO SCH (08:22)
[2018-03-20] MEDS: COLD CREAM, SKIN EMOLLIENT 340 GM JAR TP SCH ×2 (08:23→21:20)
[2018-03-20] MEDS: CHLORHEXIDINE GLUCONATE 0.12% 15 ML UDCUP ORAL RINSE PO SCH ×2 (08:23→21:20)
[2018-03-20] MEDS: ACETAMINOPHEN 325 MG TABLET PO PRN (09:40)
[2018-03-20] MEDS: OMEPRAZOLE 10 MG CAPSULE PO SCH (12:29)
[2018-03-20 15:25] VITALS: BP 121/66
[2018-03-20] MEDS: ACETAMINOPHEN 325 MG TABLET GT PRN (16:38)
[2018-03-20] MEDS: DOCUSATE SODIUM 283 MG/5 ML MINI-ENEMA PR SCH (20:19)
[2018-03-20 23:39] VITALS: BP 118/69
[2018-03-21 06:48] LABS: ALANINE AMINOTRANSFERASE 211 U/L (12-78); ALBUMIN 3.3 g/dL (3.4-5.0); ALKALINE PHOSPHATASE 61 U/L (46-116); ANION GAP 7 mmol/L (8-16); ASPARTATE AMINOTRANSFERASE 49 U/L (15-37); BILIRUBIN,TOTAL 0.3 mg/dL (0.1-1.0); CARBON DIOXIDE 27 mmol/L (22-29); CHLORIDE 108 mmol/L (98-107); CREATININE 0.62 mg/dL (0.60-1.30); GLOMERULAR FILTR. RATE CALC > 60 mL/min (>60); GLUCOSE,RANDOM 91 mg/dL (70-110); POTASSIUM 3.9 mmol/L (3.5-5.1); SODIUM SERUM 142 mmol/L (136-145); TOTAL PROTEIN, SERUM 6.4 g/dL (6.4-8.2); UREA NITROGEN, BLOOD 10 mg/dL (7-18)
[2018-03-21 07:13] VITALS: BP 111/61
[2018-03-21] MEDS: OMEPRAZOLE 10 MG CAPSULE PO SCH (08:15)
[2018-03-21] MEDS: NAPROXEN 375 MG TABLET PO SCH ×2 (08:15→12:22)
[2018-03-21] MEDS: ENOXAPARIN SODIUM 40 MG/0.4 ML PF SYRINGE SQ SCH (08:15)
[2018-03-21] MEDS: POLYETHYLENE GLYCOL 3350 17 GM PACKET PO SCH (08:15)
[2018-03-21] MEDS: BACLOFEN 10 MG TABLET PO SCH ×3 (08:16→20:55)
[2018-03-21] MEDS: DOCUSATE SODIUM 100 MG CAPSULE PO SCH (08:16)
[2018-03-21] MEDS: ASPIRIN 81 MG CHEWABLE TABLET PO SCH (08:16)
[2018-03-21] MEDS: DICLOFENAC SODIUM 1% 100 GM GEL [4GM] TP SCH ×3 (08:17→20:55)
[2018-03-21] MEDS: COLD CREAM, SKIN EMOLLIENT 340 GM JAR TP SCH ×2 (08:17→20:55)
[2018-03-21] MEDS: CHLORHEXIDINE GLUCONATE 0.12% 15 ML UDCUP ORAL RINSE PO SCH ×2 (08:17→20:55)
[2018-03-21] MEDS: ACETAMINOPHEN 325 MG TABLET PO PRN (08:24)
[2018-03-21 15:20] VITALS: BP 143/92
[2018-03-21] MEDS: ACETAMINOPHEN 325 MG TABLET GT PRN (18:17)
[2018-03-21] MEDS: DOCUSATE SODIUM 283 MG/5 ML MINI-ENEMA PR SCH (18:38)
[2018-03-22 05:00] VITALS: BP 114/60
[2018-03-22 07:14] VITALS: BP 118/69
[2018-03-22] MEDS: DICLOFENAC SODIUM 1% 100 GM GEL [4GM] TP SCH ×3 (08:01→20:44)
[2018-03-22] MEDS: NAPROXEN 375 MG TABLET PO SCH ×2 (08:02→12:40)
[2018-03-22] MEDS: OMEPRAZOLE 10 MG CAPSULE PO SCH (08:03)
[2018-03-22] MEDS: ASPIRIN 81 MG CHEWABLE TABLET PO SCH (08:05)
[2018-03-22] MEDS: CHLORHEXIDINE GLUCONATE 0.12% 15 ML UDCUP ORAL RINSE PO SCH ×2 (08:05→20:44)
[2018-03-22] MEDS: ENOXAPARIN SODIUM 40 MG/0.4 ML PF SYRINGE SQ SCH (08:05)
[2018-03-22] MEDS: BACLOFEN 10 MG TABLET PO SCH ×3 (08:06→20:43)
[2018-03-22] MEDS: COLD CREAM, SKIN EMOLLIENT 340 GM JAR TP SCH ×2 (08:06→20:44)
[2018-03-22] MEDS: ACETAMINOPHEN 325 MG TABLET PO PRN ×2 (14:17→21:48)
[2018-03-22 15:17] VITALS: BP 127/76
[2018-03-22] MEDS: POLYETHYLENE GLYCOL 3350 17 GM PACKET PO SCH (16:16)
[2018-03-22] MEDS: DOCUSATE SODIUM 283 MG/5 ML MINI-ENEMA PR SCH (19:14)
[2018-03-23 06:05] VITALS: BP 104/79
[2018-03-23 07:33] VITALS: BP 110/61
[2018-03-23] MEDS: BACLOFEN 10 MG TABLET PO SCH ×3 (08:37→21:24)
[2018-03-23] MEDS: CHLORHEXIDINE GLUCONATE 0.12% 15 ML UDCUP ORAL RINSE PO SCH ×2 (08:38→21:24)
[2018-03-23] MEDS: ASPIRIN 81 MG CHEWABLE TABLET PO SCH (08:38)
[2018-03-23] MEDS: NAPROXEN 375 MG TABLET PO SCH ×2 (08:39→12:28)
[2018-03-23] MEDS: ENOXAPARIN SODIUM 40 MG/0.4 ML PF SYRINGE SQ SCH (08:39)
[2018-03-23] MEDS: OMEPRAZOLE 10 MG CAPSULE PO SCH (08:45)
[2018-03-23] MEDS: COLD CREAM, SKIN EMOLLIENT 340 GM JAR TP SCH ×2 (08:46→21:24)
[2018-03-23] MEDS: DICLOFENAC SODIUM 1% 100 GM GEL [4GM] TP SCH ×3 (10:58→21:24)
[2018-03-23 16:14] VITALS: BP 122/64
[2018-03-23] MEDS: POLYETHYLENE GLYCOL 3350 17 GM PACKET PO SCH (16:18)
[2018-03-23] MEDS: DOCUSATE SODIUM 283 MG/5 ML MINI-ENEMA PR SCH (18:56)
[2018-03-23 23:45] VITALS: BP 125/71
[2018-03-24 07:15] VITALS: BP 150/82
[2018-03-24] MEDS: NAPROXEN 375 MG TABLET PO SCH ×2 (07:38→12:31)
[2018-03-24] MEDS: DICLOFENAC SODIUM 1% 100 GM GEL [4GM] TP SCH ×3 (09:06→20:28)
[2018-03-24] MEDS: CHLORHEXIDINE GLUCONATE 0.12% 15 ML UDCUP ORAL RINSE PO SCH ×2 (09:07→20:27)
[2018-03-24] MEDS: ASPIRIN 81 MG CHEWABLE TABLET PO SCH (09:07)
[2018-03-24] MEDS: BACLOFEN 10 MG TABLET PO SCH ×3 (09:07→20:27)
[2018-03-24] MEDS: OMEPRAZOLE 10 MG CAPSULE PO SCH (09:07)
[2018-03-24] MEDS: ENOXAPARIN SODIUM 40 MG/0.4 ML PF SYRINGE SQ SCH (09:07)
[2018-03-24] MEDS: COLD CREAM, SKIN EMOLLIENT 340 GM JAR TP SCH ×2 (09:08→20:27)
[2018-03-24 13:35] VITALS: BP 121/70
[2018-03-24 15:20] VITALS: BP 111/77
[2018-03-24] MEDS: POLYETHYLENE GLYCOL 3350 17 GM PACKET PO SCH (15:50)
[2018-03-24] MEDS: DOCUSATE SODIUM 283 MG/5 ML MINI-ENEMA PR SCH (18:36)
[2018-03-24] MEDS: NYSTATIN 15 GM POWDER BOTTLE TP SCH (20:27)
[2018-03-24] MEDS: ACETAMINOPHEN 325 MG TABLET GT PRN (20:38)
[2018-03-25 05:30] VITALS: BP 119/70
[2018-03-25 06:30] LABS: BASOPHILS % (AUTO) 0.4 % (0.0-2.0); EOSINOPHILS % (AUTO) 3.9 % (1.0-6.0); HEMATOCRIT 40.4 % (41-53); HEMOGLOBIN 13.6 g/dL (13.5-17.5); LYMPHOCYTES # (AUTO) 1.7 K/uL (1.0-4.8); LYMPHOCYTES % (AUTO) 32.5 % (22.0-44.0); MEAN CORPUSCULAR HEMOGLOBIN 28.6 pg (26.0-34.0); MEAN CORPUSCULAR HGB CONC 33.6 G/dL (31.0-37.0); MEAN CORPUSCULAR VOLUME 85 fL (80-100); MONOCYTES # (AUTO) 0.4 K/uL (0.1-1.0); MONOCYTES % (AUTO) 8.1 % (2.0-9.0); NEUTROPHILS # (AUTO) 2.9 K/uL (1.8-7.7); NEUTROPHILS % (AUTO) 55.1 % (40.0-70.0); PLATELET COUNT (AUTO) 166 K/uL (150-450); RED BLOOD CELL COUNT(AUTO) 4.75 MIL/uL (4.50-5.90); RED CELL DISTRIBUTION WIDTH 14.3 % (11.5-14.5)
[2018-03-25 06:47] LABS: ALANINE AMINOTRANSFERASE 197 U/L (12-78); ALBUMIN 3.5 g/dL (3.4-5.0); ALKALINE PHOSPHATASE 67 U/L (46-116); ANION GAP 8 mmol/L (8-16); ASPARTATE AMINOTRANSFERASE 55 U/L (15-37); BILIRUBIN,TOTAL 0.2 mg/dL (0.1-1.0); CALCIUM, TOTAL 9.1 mg/dL (8.8-10.5); CARBON DIOXIDE 27 mmol/L (22-29); CHLORIDE 106 mmol/L (98-107); CREATININE 0.78 mg/dL (0.60-1.30); GLOMERULAR FILTR. RATE CALC > 60 mL/min (>60); GLUCOSE,RANDOM 92 mg/dL (70-110); POTASSIUM 4.1 mmol/L (3.5-5.1); SODIUM SERUM 141 mmol/L (136-145); TOTAL PROTEIN, SERUM 6.9 g/dL (6.4-8.2); UREA NITROGEN, BLOOD 14 mg/dL (7-18)
[2018-03-25 07:40] VITALS: BP 123/62
[2018-03-25] MEDS: BACLOFEN 10 MG TABLET PO SCH ×3 (08:14→20:04)
[2018-03-25] MEDS: NAPROXEN 375 MG TABLET PO SCH (08:14)
[2018-03-25] MEDS: CHLORHEXIDINE GLUCONATE 0.12% 15 ML UDCUP ORAL RINSE PO SCH ×2 (08:14→20:03)
[2018-03-25] MEDS: ENOXAPARIN SODIUM 40 MG/0.4 ML PF SYRINGE SQ SCH (08:14)
[2018-03-25] MEDS: ASPIRIN 81 MG CHEWABLE TABLET PO SCH (08:15)
[2018-03-25] MEDS: DICLOFENAC SODIUM 1% 100 GM GEL [4GM] TP SCH ×3 (08:15→20:05)
[2018-03-25] MEDS: NYSTATIN 15 GM POWDER BOTTLE TP SCH ×2 (08:16→20:04)
[2018-03-25] MEDS: COLD CREAM, SKIN EMOLLIENT 340 GM JAR TP SCH ×2 (08:18→20:04)
[2018-03-25] MEDS: OMEPRAZOLE 10 MG CAPSULE PO SCH (08:18)
[2018-03-25 16:13] VITALS: BP 126/63
[2018-03-25] MEDS: POLYETHYLENE GLYCOL 3350 17 GM PACKET PO SCH (16:15)
[2018-03-25] MEDS: DOCUSATE SODIUM 283 MG/5 ML MINI-ENEMA PR SCH (18:35)
[2018-03-25] MEDS: ACETAMINOPHEN 325 MG TABLET GT PRN (21:24)
[2018-03-26 05:30] VITALS: BP 117/64
[2018-03-26 07:48] VITALS: BP 111/66
[2018-03-26] MEDS: ASPIRIN 81 MG CHEWABLE TABLET PO SCH (08:34)
[2018-03-26] MEDS: OMEPRAZOLE 10 MG CAPSULE PO SCH (08:34)
[2018-03-26] MEDS: BACLOFEN 10 MG TABLET PO SCH ×3 (08:34→20:29)
[2018-03-26] MEDS: NYSTATIN 15 GM POWDER BOTTLE TP SCH ×2 (08:35→20:30)
[2018-03-26] MEDS: ENOXAPARIN SODIUM 40 MG/0.4 ML PF SYRINGE SQ SCH (08:35)
[2018-03-26] MEDS: CHLORHEXIDINE GLUCONATE 0.12% 15 ML UDCUP ORAL RINSE PO SCH ×2 (08:35→20:30)
[2018-03-26] MEDS: DICLOFENAC SODIUM 1% 100 GM GEL [4GM] TP SCH ×3 (08:35→20:29)
[2018-03-26] MEDS: COLD CREAM, SKIN EMOLLIENT 340 GM JAR TP SCH ×2 (08:36→20:30)
[2018-03-26] MEDS: ACETAMINOPHEN 325 MG TABLET PO PRN ×2 (08:51→20:30)
[2018-03-26 15:25] VITALS: BP 129/74
[2018-03-26] MEDS: POLYETHYLENE GLYCOL 3350 17 GM PACKET PO SCH (15:55)
[2018-03-26] MEDS: DOCUSATE SODIUM 283 MG/5 ML MINI-ENEMA PR SCH (18:25)
[2018-03-27] VITALS: BP 121/63
[2018-03-27 07:32] VITALS: BP 118/70
[2018-03-27] MEDS: CHLORHEXIDINE GLUCONATE 0.12% 15 ML UDCUP ORAL RINSE PO SCH ×2 (08:33→20:59)
[2018-03-27] MEDS: ASPIRIN 81 MG CHEWABLE TABLET PO SCH (08:34)
[2018-03-27] MEDS: OMEPRAZOLE 10 MG CAPSULE PO SCH (08:34)
[2018-03-27] MEDS: ENOXAPARIN SODIUM 40 MG/0.4 ML PF SYRINGE SQ SCH (08:34)
[2018-03-27] MEDS: BACLOFEN 10 MG TABLET PO SCH ×3 (08:35→20:59)
[2018-03-27] MEDS: DICLOFENAC SODIUM 1% 100 GM GEL [4GM] TP SCH ×3 (08:36→20:59)
[2018-03-27] MEDS: NYSTATIN 15 GM POWDER BOTTLE TP SCH ×2 (08:36→20:59)
[2018-03-27] MEDS: ACETAMINOPHEN 325 MG TABLET PO PRN ×2 (08:38→15:57)
[2018-03-27] MEDS: COLD CREAM, SKIN EMOLLIENT 340 GM JAR TP SCH ×2 (08:39→20:59)
[2018-03-27 15:30] VITALS: BP 126/77
[2018-03-27] MEDS: POLYETHYLENE GLYCOL 3350 17 GM PACKET PO SCH ×2 (15:56→16:00)
[2018-03-27] MEDS: DOCUSATE SODIUM 283 MG/5 ML MINI-ENEMA PR SCH (18:00)
[2018-03-27] MEDS: DIAZEPAM 2 MG TABLET PO SCH (20:59)
[2018-03-28 05:00] VITALS: BP 116/78
[2018-03-28 07:34] VITALS: BP 115/58
[2018-03-28] MEDS: OMEPRAZOLE 10 MG CAPSULE PO SCH (09:00)
[2018-03-28] MEDS: NYSTATIN 15 GM POWDER BOTTLE TP SCH ×2 (09:01→21:29)
[2018-03-28] MEDS: CHLORHEXIDINE GLUCONATE 0.12% 15 ML UDCUP ORAL RINSE PO SCH ×2 (09:01→21:29)
[2018-03-28] MEDS: ENOXAPARIN SODIUM 40 MG/0.4 ML PF SYRINGE SQ SCH (09:01)
[2018-03-28] MEDS: ASPIRIN 81 MG CHEWABLE TABLET PO SCH (09:01)
[2018-03-28] MEDS: BACLOFEN 10 MG TABLET PO SCH ×3 (09:01→21:30)
[2018-03-28] MEDS: DICLOFENAC SODIUM 1% 100 GM GEL [4GM] TP SCH ×3 (09:02→21:29)
[2018-03-28] MEDS: COLD CREAM, SKIN EMOLLIENT 340 GM JAR TP SCH ×2 (09:02→21:30)
[2018-03-28] MEDS: ACETAMINOPHEN 325 MG TABLET PO PRN (14:09)
[2018-03-28 15:09] VITALS: BP 124/70
[2018-03-28] MEDS: POLYETHYLENE GLYCOL 3350 17 GM PACKET PO SCH (16:15)
[2018-03-28] MEDS: DOCUSATE SODIUM 283 MG/5 ML MINI-ENEMA PR SCH (18:44)
[2018-03-28] MEDS: DIAZEPAM 2 MG TABLET PO SCH (21:30)
[2018-03-29 05:00] VITALS: BP 118/79
[2018-03-29 08:01] VITALS: BP 114/63
[2018-03-29] MEDS: ENOXAPARIN SODIUM 40 MG/0.4 ML PF SYRINGE SQ SCH (09:02)
[2018-03-29] MEDS: ASPIRIN 81 MG CHEWABLE TABLET PO SCH (09:03)
[2018-03-29] MEDS: CHLORHEXIDINE GLUCONATE 0.12% 15 ML UDCUP ORAL RINSE PO SCH ×2 (09:07→20:38)
[2018-03-29] MEDS: BACLOFEN 10 MG TABLET PO SCH ×3 (09:07→20:38)
[2018-03-29] MEDS: NYSTATIN 15 GM POWDER BOTTLE TP SCH ×2 (09:08→20:38)
[2018-03-29] MEDS: OMEPRAZOLE 10 MG CAPSULE PO SCH (09:08)
[2018-03-29] MEDS: DICLOFENAC SODIUM 1% 100 GM GEL [4GM] TP SCH ×3 (09:08→20:38)
[2018-03-29] MEDS: COLD CREAM, SKIN EMOLLIENT 340 GM JAR TP SCH ×2 (09:09→20:38)
[2018-03-29 16:23] VITALS: BP 118/75
[2018-03-29] MEDS: POLYETHYLENE GLYCOL 3350 17 GM PACKET PO SCH (16:26)
[2018-03-29] MEDS: DOCUSATE SODIUM 283 MG/5 ML MINI-ENEMA PR SCH (19:04)
[2018-03-29 20:25] VITALS: BP 139/79
[2018-03-29] MEDS: DIAZEPAM 2 MG TABLET PO SCH (20:38)
[2018-03-30 05:45] VITALS: BP 119/74
[2018-03-30 08:00] VITALS: BP 134/66
[2018-03-30] MEDS: OMEPRAZOLE 10 MG CAPSULE PO SCH (08:45)
[2018-03-30] MEDS: ACETAMINOPHEN 325 MG TABLET PO PRN (08:45)
[2018-03-30] MEDS: ASPIRIN 81 MG CHEWABLE TABLET PO SCH (08:46)
[2018-03-30] MEDS: NYSTATIN 15 GM POWDER BOTTLE TP SCH ×2 (08:46→20:09)
[2018-03-30] MEDS: DICLOFENAC SODIUM 1% 100 GM GEL [4GM] TP SCH ×3 (08:46→20:09)
[2018-03-30] MEDS: ENOXAPARIN SODIUM 40 MG/0.4 ML PF SYRINGE SQ SCH (08:46)
[2018-03-30] MEDS: CHLORHEXIDINE GLUCONATE 0.12% 15 ML UDCUP ORAL RINSE PO SCH ×2 (08:47→20:12)
[2018-03-30] MEDS: BACLOFEN 10 MG TABLET PO SCH ×3 (08:47→20:09)
[2018-03-30] MEDS: COLD CREAM, SKIN EMOLLIENT 340 GM JAR TP SCH ×2 (08:47→20:08)
[2018-03-30 15:15] VITALS: BP 122/74
[2018-03-30] MEDS: POLYETHYLENE GLYCOL 3350 17 GM PACKET PO SCH (16:43)
[2018-03-30] MEDS: DOCUSATE SODIUM 283 MG/5 ML MINI-ENEMA PR SCH (19:20)
[2018-03-30] MEDS: DIAZEPAM 2 MG TABLET PO SCH (20:09)
[2018-03-30 23:11] VITALS: BP 145/71
[2018-03-31 07:45] VITALS: BP 145/80
[2018-03-31] MEDS: OMEPRAZOLE 10 MG CAPSULE PO SCH (08:23)
[2018-03-31] MEDS: BACLOFEN 10 MG TABLET PO SCH ×3 (08:23→20:04)
[2018-03-31] MEDS: DICLOFENAC SODIUM 1% 100 GM GEL [4GM] TP SCH ×3 (08:23→20:05)
[2018-03-31] MEDS: ENOXAPARIN SODIUM 40 MG/0.4 ML PF SYRINGE SQ SCH (08:23)
[2018-03-31] MEDS: CHLORHEXIDINE GLUCONATE 0.12% 15 ML UDCUP ORAL RINSE PO SCH (08:23)
[2018-03-31] MEDS: NYSTATIN 15 GM POWDER BOTTLE TP SCH ×2 (08:23→20:06)
[2018-03-31] MEDS: COLD CREAM, SKIN EMOLLIENT 340 GM JAR TP SCH ×2 (08:24→20:05)
[2018-03-31] MEDS: ASPIRIN 81 MG CHEWABLE TABLET PO SCH (08:24)
[2018-03-31 15:00] VITALS: BP 124/71
[2018-03-31] MEDS: POLYETHYLENE GLYCOL 3350 17 GM PACKET PO SCH (16:25)
[2018-03-31] MEDS: DOCUSATE SODIUM 283 MG/5 ML MINI-ENEMA PR SCH (19:09)
[2018-03-31] MEDS: DIAZEPAM 2 MG TABLET PO SCH (20:04)
[2018-03-31 23:00] VITALS: BP 124/68
[2018-04-01 07:17] VITALS: BP 120/73
[2018-04-01] MEDS: NYSTATIN 15 GM POWDER BOTTLE TP SCH ×2 (08:37→20:59)
[2018-04-01] MEDS: ENOXAPARIN SODIUM 40 MG/0.4 ML PF SYRINGE SQ SCH (08:38)
[2018-04-01] MEDS: BACLOFEN 10 MG TABLET PO SCH ×3 (08:38→20:59)
[2018-04-01] MEDS: ASPIRIN 81 MG CHEWABLE TABLET PO SCH (08:38)
[2018-04-01] MEDS: OMEPRAZOLE 10 MG CAPSULE PO SCH (08:38)
[2018-04-01] MEDS: DICLOFENAC SODIUM 1% 100 GM GEL [4GM] TP SCH ×3 (08:39→20:58)
[2018-04-01] MEDS: COLD CREAM, SKIN EMOLLIENT 340 GM JAR TP SCH ×2 (08:39→20:59)
[2018-04-01] MEDS: ACETAMINOPHEN 325 MG TABLET PO PRN (08:39)
[2018-04-01 15:35] VITALS: BP 124/67
[2018-04-01] MEDS: POLYETHYLENE GLYCOL 3350 17 GM PACKET PO SCH (15:56)
[2018-04-01] MEDS: ACETAMINOPHEN 325 MG TABLET GT PRN (16:05)
[2018-04-01] MEDS: DOCUSATE SODIUM 283 MG/5 ML MINI-ENEMA PR SCH (18:19)
[2018-04-01] MEDS: DIAZEPAM 2 MG TABLET PO SCH (20:58)
[2018-04-02 05:15] VITALS: BP 117/62
[2018-04-02 07:41] VITALS: BP 107/59
[2018-04-02] MEDS: OMEPRAZOLE 10 MG CAPSULE PO SCH (08:27)
[2018-04-02] MEDS: DICLOFENAC SODIUM 1% 100 GM GEL [4GM] TP SCH ×3 (08:27→21:32)
[2018-04-02] MEDS: ENOXAPARIN SODIUM 40 MG/0.4 ML PF SYRINGE SQ SCH (08:27)
[2018-04-02] MEDS: NYSTATIN 15 GM POWDER BOTTLE TP SCH ×2 (08:28→21:32)
[2018-04-02] MEDS: ACETAMINOPHEN 325 MG TABLET PO PRN (08:28)
[2018-04-02] MEDS: BACLOFEN 10 MG TABLET PO SCH ×3 (08:28→21:32)
[2018-04-02] MEDS: COLD CREAM, SKIN EMOLLIENT 340 GM JAR TP SCH ×2 (08:29→21:32)
[2018-04-02] MEDS: ASPIRIN 81 MG CHEWABLE TABLET PO SCH (08:29)
[2018-04-02] MEDS ORDERED: NYSTATIN 15 GM POWDER BOTTLE TP SCH (09:00)
[2018-04-02 15:20] VITALS: BP 117/69
[2018-04-02] MEDS: POLYETHYLENE GLYCOL 3350 17 GM PACKET PO SCH (16:28)
[2018-04-02] MEDS: DOCUSATE SODIUM 283 MG/5 ML MINI-ENEMA PR SCH (18:37)
[2018-04-02] MEDS: DIAZEPAM 2 MG TABLET PO SCH (21:32)
[2018-04-03 05:00] VITALS: BP 116/75
[2018-04-03 06:47] LABS: BASOPHILS % (AUTO) 0.3 % (0.0-2.0); EOSINOPHILS % (AUTO) 4.7 % (1.0-6.0); HEMATOCRIT 41.9 % (41-53); HEMOGLOBIN 14.2 g/dL (13.5-17.5); LYMPHOCYTES # (AUTO) 1.5 K/uL (1.0-4.8); LYMPHOCYTES % (AUTO) 24.5 % (22.0-44.0); MEAN CORPUSCULAR HEMOGLOBIN 28.6 pg (26.0-34.0); MEAN CORPUSCULAR VOLUME 84 fL (80-100); MONOCYTES # (AUTO) 0.5 K/uL (0.1-1.0); MONOCYTES % (AUTO) 8.2 % (2.0-9.0); NEUTROPHILS # (AUTO) 3.7 K/uL (1.8-7.7); NEUTROPHILS % (AUTO) 62.3 % (40.0-70.0); PLATELET COUNT (AUTO) 177 K/uL (150-450); RED BLOOD CELL COUNT(AUTO) 4.98 MIL/uL (4.50-5.90); RED CELL DISTRIBUTION WIDTH 14.5 % (11.5-14.5)
[2018-04-03 07:06] LABS: ALANINE AMINOTRANSFERASE 275 U/L (12-78); ALBUMIN 3.5 g/dL (3.4-5.0); ALKALINE PHOSPHATASE 67 U/L (46-116); ANION GAP 9 mmol/L (8-16); ASPARTATE AMINOTRANSFERASE 94 U/L (15-37); BILIRUBIN,TOTAL 0.2 mg/dL (0.1-1.0); CALCIUM, TOTAL 9.2 mg/dL (8.8-10.5); CARBON DIOXIDE 29 mmol/L (22-29); CHLORIDE 105 mmol/L (98-107); CREATININE 0.63 mg/dL (0.60-1.30); GLOMERULAR FILTR. RATE CALC > 60 mL/min (>60); GLUCOSE,RANDOM 91 mg/dL (70-110); POTASSIUM 3.9 mmol/L (3.5-5.1); SODIUM SERUM 143 mmol/L (136-145); TOTAL PROTEIN, SERUM 6.9 g/dL (6.4-8.2); UREA NITROGEN, BLOOD 8 mg/dL (7-18)
[2018-04-03 07:27] VITALS: BP 111/69
[2018-04-03] MEDS: OMEPRAZOLE 10 MG CAPSULE PO SCH (09:07)
[2018-04-03] MEDS: BACLOFEN 10 MG TABLET PO SCH (09:07)
[2018-04-03] MEDS: ENOXAPARIN SODIUM 40 MG/0.4 ML PF SYRINGE SQ SCH (09:07)
[2018-04-03] MEDS: NYSTATIN 15 GM POWDER BOTTLE TP SCH ×2 (09:07→20:20)
[2018-04-03] MEDS: ASPIRIN 81 MG CHEWABLE TABLET PO SCH (09:08)
[2018-04-03] MEDS: DICLOFENAC SODIUM 1% 100 GM GEL [4GM] TP SCH ×3 (09:08→20:20)
[2018-04-03] MEDS: COLD CREAM, SKIN EMOLLIENT 340 GM JAR TP SCH ×2 (09:08→20:20)
[2018-04-03] MEDS: ACETAMINOPHEN 325 MG TABLET PO PRN (09:08)
[2018-04-03 15:25] VITALS: BP 120/72
[2018-04-03] MEDS: POLYETHYLENE GLYCOL 3350 17 GM PACKET PO SCH (17:55)
[2018-04-03] MEDS: DOCUSATE SODIUM 283 MG/5 ML MINI-ENEMA PR SCH (17:55)
[2018-04-03] MEDS: DIAZEPAM 2 MG TABLET PO SCH (20:20)
[2018-04-04 05:30] VITALS: BP 123/69
[2018-04-04 07:21] VITALS: BP 116/63
[2018-04-04] MEDS: ACETAMINOPHEN 325 MG TABLET PO PRN ×2 (08:12→13:02)
[2018-04-04] MEDS: NYSTATIN 15 GM POWDER BOTTLE TP SCH ×2 (08:12→20:56)
[2018-04-04] MEDS: DICLOFENAC SODIUM 1% 100 GM GEL [4GM] TP SCH ×3 (08:12→20:55)
[2018-04-04] MEDS: ASPIRIN 81 MG CHEWABLE TABLET PO SCH (08:13)
[2018-04-04] MEDS: ENOXAPARIN SODIUM 40 MG/0.4 ML PF SYRINGE SQ SCH (08:13)
[2018-04-04] MEDS: COLD CREAM, SKIN EMOLLIENT 340 GM JAR TP SCH ×2 (08:13→20:56)
[2018-04-04] MEDS: OMEPRAZOLE 10 MG CAPSULE PO SCH (08:13)
[2018-04-04 14:01] VITALS: BP 120/64
[2018-04-04 16:01] VITALS: BP 120/64
[2018-04-04] MEDS: POLYETHYLENE GLYCOL 3350 17 GM PACKET PO SCH (16:50)
[2018-04-04] MEDS: DOCUSATE SODIUM 283 MG/5 ML MINI-ENEMA PR SCH (18:54)
[2018-04-04] MEDS: DIAZEPAM 2 MG TABLET PO SCH (20:56)
[2018-04-05 05:00] VITALS: BP 118/69
[2018-04-05 07:20] VITALS: BP 122/74
[2018-04-05] MEDS: OMEPRAZOLE 10 MG CAPSULE PO SCH (09:09)
[2018-04-05] MEDS: ENOXAPARIN SODIUM 40 MG/0.4 ML PF SYRINGE SQ SCH (09:10)
[2018-04-05] MEDS: ASPIRIN 81 MG CHEWABLE TABLET PO SCH (09:11)
[2018-04-05] MEDS: COLD CREAM, SKIN EMOLLIENT 340 GM JAR TP SCH ×2 (09:11→21:00)
[2018-04-05] MEDS: NYSTATIN 15 GM POWDER BOTTLE TP SCH ×2 (09:13→21:00)
[2018-04-05] MEDS: DICLOFENAC SODIUM 1% 100 GM GEL [4GM] TP SCH ×3 (09:13→21:00)
[2018-04-05] MEDS: ACETAMINOPHEN 325 MG TABLET PO PRN (09:21)
[2018-04-05 15:28] VITALS: BP 124/64
[2018-04-05] MEDS: POLYETHYLENE GLYCOL 3350 17 GM PACKET PO SCH (16:25)
[2018-04-05] MEDS: DOCUSATE SODIUM 283 MG/5 ML MINI-ENEMA PR SCH (18:46)
[2018-04-05] MEDS: DIAZEPAM 2 MG TABLET PO SCH (21:00)
[2018-04-06 05:50] VITALS: BP 117/70
[2018-04-06 07:30] VITALS: BP 121/69
[2018-04-06] MEDS: NYSTATIN 15 GM POWDER BOTTLE TP SCH ×2 (08:28→20:47)
[2018-04-06] MEDS: ASPIRIN 81 MG CHEWABLE TABLET PO SCH (08:28)
[2018-04-06] MEDS: OMEPRAZOLE 10 MG CAPSULE PO SCH (08:28)
[2018-04-06] MEDS: ENOXAPARIN SODIUM 40 MG/0.4 ML PF SYRINGE SQ SCH (08:28)
[2018-04-06] MEDS: COLD CREAM, SKIN EMOLLIENT 340 GM JAR TP SCH ×2 (08:29→20:48)
[2018-04-06] MEDS: DICLOFENAC SODIUM 1% 100 GM GEL [4GM] TP SCH ×3 (08:29→20:48)
[2018-04-06] MEDS: ACETAMINOPHEN 325 MG TABLET PO PRN (10:57)
[2018-04-06] MEDS: INDOMETHACIN 25 MG CAPSULE PO SCH ×2 (16:40→20:47)
[2018-04-06] MEDS: CYCLOBENZAPRINE HCL 10 MG TABLET PO SCH ×2 (16:41→20:47)
[2018-04-06] MEDS: POLYETHYLENE GLYCOL 3350 17 GM PACKET PO SCH (16:42)
[2018-04-06 16:56] VITALS: BP 123/66
[2018-04-06] MEDS: DOCUSATE SODIUM 283 MG/5 ML MINI-ENEMA PR SCH (18:49)
[2018-04-06] MEDS: DIAZEPAM 2 MG TABLET PO SCH (20:47)
[2018-04-07 05:30] VITALS: BP 123/80
[2018-04-07 07:36] VITALS: BP 110/72
[2018-04-07] MEDS: ENOXAPARIN SODIUM 40 MG/0.4 ML PF SYRINGE SQ SCH (08:39)
[2018-04-07] MEDS: NYSTATIN 15 GM POWDER BOTTLE TP SCH ×2 (08:39→21:11)
[2018-04-07] MEDS: OMEPRAZOLE 10 MG CAPSULE PO SCH (08:39)
[2018-04-07] MEDS: DICLOFENAC SODIUM 1% 100 GM GEL [4GM] TP SCH ×3 (08:40→21:11)
[2018-04-07] MEDS: INDOMETHACIN 25 MG CAPSULE PO SCH ×3 (08:40→21:11)
[2018-04-07] MEDS: CYCLOBENZAPRINE HCL 10 MG TABLET PO SCH ×3 (08:47→21:10)
[2018-04-07] MEDS: ASPIRIN 81 MG CHEWABLE TABLET PO SCH (08:48)
[2018-04-07] MEDS: COLD CREAM, SKIN EMOLLIENT 340 GM JAR TP SCH ×2 (08:48→21:12)
[2018-04-07 15:10] VITALS: BP 120/74
[2018-04-07] MEDS: POLYETHYLENE GLYCOL 3350 17 GM PACKET PO SCH (16:29)
[2018-04-07] MEDS: DOCUSATE SODIUM 283 MG/5 ML MINI-ENEMA PR SCH (18:24)
[2018-04-07] MEDS: DIAZEPAM 2 MG TABLET PO SCH (21:10)
[2018-04-08 05:15] VITALS: BP 116/71
[2018-04-08 06:44] LABS: ALANINE AMINOTRANSFERASE 182 U/L (12-78); ALBUMIN 3.4 g/dL (3.4-5.0); ALKALINE PHOSPHATASE 62 U/L (46-116); ANION GAP 10 mmol/L (8-16); ASPARTATE AMINOTRANSFERASE 35 U/L (15-37); BILIRUBIN,TOTAL 0.2 mg/dL (0.1-1.0); CALCIUM, TOTAL 9.2 mg/dL (8.8-10.5); CARBON DIOXIDE 27 mmol/L (22-29); CHLORIDE 105 mmol/L (98-107); CREATININE 0.79 mg/dL (0.60-1.30); GLOMERULAR FILTR. RATE CALC > 60 mL/min (>60); GLUCOSE,RANDOM 114 mg/dL (70-110); SODIUM SERUM 142 mmol/L (136-145); TOTAL PROTEIN, SERUM 6.7 g/dL (6.4-8.2); UREA NITROGEN, BLOOD 18 mg/dL (7-18)
[2018-04-08 07:27] VITALS: BP 115/61
[2018-04-08] MEDS: DICLOFENAC SODIUM 1% 100 GM GEL [4GM] TP SCH ×3 (08:45→21:07)
[2018-04-08] MEDS: ENOXAPARIN SODIUM 40 MG/0.4 ML PF SYRINGE SQ SCH (08:45)
[2018-04-08] MEDS: CYCLOBENZAPRINE HCL 10 MG TABLET PO SCH ×3 (08:46→21:08)
[2018-04-08] MEDS: INDOMETHACIN 25 MG CAPSULE PO SCH ×3 (08:46→21:07)
[2018-04-08] MEDS: OMEPRAZOLE 10 MG CAPSULE PO SCH (08:46)
[2018-04-08] MEDS: ASPIRIN 81 MG CHEWABLE TABLET PO SCH (08:46)
[2018-04-08] MEDS: COLD CREAM, SKIN EMOLLIENT 340 GM JAR TP SCH ×2 (08:47→21:08)
[2018-04-08] MEDS: NYSTATIN 15 GM POWDER BOTTLE TP SCH ×2 (08:47→21:07)
[2018-04-08 15:35] VITALS: BP 124/73
[2018-04-08] MEDS: POLYETHYLENE GLYCOL 3350 17 GM PACKET PO SCH (17:13)
[2018-04-08] MEDS: DOCUSATE SODIUM 283 MG/5 ML MINI-ENEMA PR SCH (18:42)
[2018-04-08] MEDS: DIAZEPAM 2 MG TABLET PO SCH (21:07)
[2018-04-09 05:18] VITALS: BP 126/62
[2018-04-09 07:35] VITALS: BP 98/63
[2018-04-09] MEDS ORDERED: MEDRONATE TC99M/UD<30 MCL ISOTOPE 1 EA INJ INJ ONE (08:00)
[2018-04-09] MEDS: ENOXAPARIN SODIUM 40 MG/0.4 ML PF SYRINGE SQ SCH (08:15)
[2018-04-09] MEDS: OMEPRAZOLE 10 MG CAPSULE PO SCH (08:15)
[2018-04-09] MEDS: DICLOFENAC SODIUM 1% 100 GM GEL [4GM] TP SCH ×3 (08:15→21:52)
[2018-04-09] MEDS: INDOMETHACIN 25 MG CAPSULE PO SCH ×3 (08:15→21:52)
[2018-04-09] MEDS: COLD CREAM, SKIN EMOLLIENT 340 GM JAR TP SCH ×2 (08:17→21:53)
[2018-04-09] MEDS: CYCLOBENZAPRINE HCL 10 MG TABLET PO SCH ×3 (08:28→21:52)
[2018-04-09] MEDS: ASPIRIN 81 MG CHEWABLE TABLET PO SCH (08:28)
[2018-04-09] MEDS: NYSTATIN 15 GM POWDER BOTTLE TP SCH ×2 (11:59→21:53)
[2018-04-09] MEDS ORDERED: 0.9% SODIUM CHLORIDE 10 ML SYRINGE IVP SCH (15:00)
[2018-04-09 16:38] VITALS: BP 116/66
[2018-04-09] MEDS: POLYETHYLENE GLYCOL 3350 17 GM PACKET PO SCH (16:44)
[2018-04-09] MEDS: DOCUSATE SODIUM 283 MG/5 ML MINI-ENEMA PR SCH (19:29)
[2018-04-09] MEDS: DIAZEPAM 2 MG TABLET PO SCH (21:52)
[2018-04-10 05:46] VITALS: BP 113/78
[2018-04-10 08:11] VITALS: BP 120/64
[2018-04-10] MEDS: COLD CREAM, SKIN EMOLLIENT 340 GM JAR TP SCH ×2 (08:36→20:59)
[2018-04-10] MEDS: ENOXAPARIN SODIUM 40 MG/0.4 ML PF SYRINGE SQ SCH (08:37)
[2018-04-10] MEDS: OMEPRAZOLE 10 MG CAPSULE PO SCH (08:37)
[2018-04-10] MEDS: INDOMETHACIN 25 MG CAPSULE PO SCH ×3 (08:37→20:59)
[2018-04-10] MEDS: CYCLOBENZAPRINE HCL 10 MG TABLET PO SCH ×3 (08:37→20:59)
[2018-04-10] MEDS: DICLOFENAC SODIUM 1% 100 GM GEL [4GM] TP SCH ×3 (08:38→20:58)
[2018-04-10] MEDS: ASPIRIN 81 MG CHEWABLE TABLET PO SCH (08:38)
[2018-04-10] MEDS: NYSTATIN 15 GM POWDER BOTTLE TP SCH ×2 (08:38→20:59)
[2018-04-10 15:10] VITALS: BP 109/63
[2018-04-10] MEDS: POLYETHYLENE GLYCOL 3350 17 GM PACKET PO SCH (16:28)
[2018-04-10] MEDS: DOCUSATE SODIUM 283 MG/5 ML MINI-ENEMA PR SCH (18:22)
[2018-04-10] MEDS: DIAZEPAM 2 MG TABLET PO SCH (20:59)
[2018-04-11 05:00] VITALS: BP 119/67
[2018-04-11 07:16] VITALS: BP 126/74
[2018-04-11] MEDS: NYSTATIN 15 GM POWDER BOTTLE TP SCH ×2 (08:04→21:31)
[2018-04-11] MEDS: INDOMETHACIN 25 MG CAPSULE PO SCH ×3 (08:05→21:31)
[2018-04-11] MEDS: ASPIRIN 81 MG CHEWABLE TABLET PO SCH (08:05)
[2018-04-11] MEDS: OMEPRAZOLE 10 MG CAPSULE PO SCH (08:05)
[2018-04-11] MEDS: COLD CREAM, SKIN EMOLLIENT 340 GM JAR TP SCH ×2 (08:06→21:31)
[2018-04-11] MEDS: ENOXAPARIN SODIUM 40 MG/0.4 ML PF SYRINGE SQ SCH (08:06)
[2018-04-11] MEDS: CYCLOBENZAPRINE HCL 10 MG TABLET PO SCH ×3 (08:06→21:31)
[2018-04-11] MEDS: DICLOFENAC SODIUM 1% 100 GM GEL [4GM] TP SCH ×3 (08:06→21:31)
[2018-04-11 15:05] VITALS: BP 116/75
[2018-04-11] MEDS: POLYETHYLENE GLYCOL 3350 17 GM PACKET PO SCH (15:58)
[2018-04-11] MEDS: DOCUSATE SODIUM 283 MG/5 ML MINI-ENEMA PR SCH (18:08)
[2018-04-11] MEDS: DIAZEPAM 2 MG TABLET PO SCH (21:31)
[2018-04-12 06:11] VITALS: BP 128/72
[2018-04-12 06:54] LABS: ALANINE AMINOTRANSFERASE 105 U/L (12-78); ALKALINE PHOSPHATASE 69 U/L (46-116); ANION GAP 5 mmol/L (8-16); ASPARTATE AMINOTRANSFERASE 21 U/L (15-37); BILIRUBIN,TOTAL 0.2 mg/dL (0.1-1.0); CALCIUM, TOTAL 8.9 mg/dL (8.8-10.5); CARBON DIOXIDE 29 mmol/L (22-29); CHLORIDE 105 mmol/L (98-107); CREATININE 0.72 mg/dL (0.60-1.30); GLOMERULAR FILTR. RATE CALC > 60 mL/min (>60); GLUCOSE,RANDOM 105 mg/dL (70-110); POTASSIUM 3.9 mmol/L (3.5-5.1); SODIUM SERUM 139 mmol/L (136-145); TOTAL PROTEIN, SERUM 6.7 g/dL (6.4-8.2); UREA NITROGEN, BLOOD 12 mg/dL (7-18)
[2018-04-12 07:50] VITALS: BP 117/68
[2018-04-12] MEDS: ENOXAPARIN SODIUM 40 MG/0.4 ML PF SYRINGE SQ SCH (07:57)
[2018-04-12] MEDS: OMEPRAZOLE 10 MG CAPSULE PO SCH (07:57)
[2018-04-12] MEDS: INDOMETHACIN 25 MG CAPSULE PO SCH ×3 (07:57→22:02)
[2018-04-12] MEDS: DICLOFENAC SODIUM 1% 100 GM GEL [4GM] TP SCH ×3 (07:58→22:01)
[2018-04-12] MEDS: ASPIRIN 81 MG CHEWABLE TABLET PO SCH (07:58)
[2018-04-12] MEDS: NYSTATIN 15 GM POWDER BOTTLE TP SCH ×2 (07:58→22:01)
[2018-04-12] MEDS: COLD CREAM, SKIN EMOLLIENT 340 GM JAR TP SCH ×2 (07:58→22:03)
[2018-04-12] MEDS: CYCLOBENZAPRINE HCL 10 MG TABLET PO SCH ×3 (07:58→22:02)
[2018-04-12 15:00] VITALS: BP 109/63
[2018-04-12] MEDS: POLYETHYLENE GLYCOL 3350 17 GM PACKET PO SCH (16:15)
[2018-04-12] MEDS: DOCUSATE SODIUM 283 MG/5 ML MINI-ENEMA PR SCH (19:49)
[2018-04-12] MEDS: DIAZEPAM 2 MG TABLET PO SCH (22:02)
[2018-04-12 23:00] VITALS: BP 117/69
[2018-04-13 07:17] VITALS: BP 121/72
[2018-04-13] MEDS: DICLOFENAC SODIUM 1% 100 GM GEL [4GM] TP SCH ×3 (08:56→20:08)
[2018-04-13] MEDS: NYSTATIN 15 GM POWDER BOTTLE TP SCH ×2 (08:56→20:09)
[2018-04-13] MEDS: ENOXAPARIN SODIUM 40 MG/0.4 ML PF SYRINGE SQ SCH (08:56)
[2018-04-13] MEDS: OMEPRAZOLE 10 MG CAPSULE PO SCH (08:56)
[2018-04-13] MEDS: COLD CREAM, SKIN EMOLLIENT 340 GM JAR TP SCH ×2 (08:57→20:09)
[2018-04-13] MEDS: CYCLOBENZAPRINE HCL 10 MG TABLET PO SCH ×3 (08:57→20:09)
[2018-04-13] MEDS: ASPIRIN 81 MG CHEWABLE TABLET PO SCH (08:57)
[2018-04-13] MEDS: INDOMETHACIN 25 MG CAPSULE PO SCH ×3 (08:57→20:08)
[2018-04-13 15:30] VITALS: BP 121/71
[2018-04-13] MEDS: POLYETHYLENE GLYCOL 3350 17 GM PACKET PO SCH (16:01)
[2018-04-13] MEDS: DOCUSATE SODIUM 283 MG/5 ML MINI-ENEMA PR SCH (18:23)
[2018-04-13] MEDS: DIAZEPAM 2 MG TABLET PO SCH (20:09)
[2018-04-13 23:10] VITALS: BP 118/70
[2018-04-14 07:19] VITALS: BP 119/75
[2018-04-14] MEDS: ENOXAPARIN SODIUM 40 MG/0.4 ML PF SYRINGE SQ SCH (08:36)
[2018-04-14] MEDS: NYSTATIN 15 GM POWDER BOTTLE TP SCH ×2 (08:37→20:56)
[2018-04-14] MEDS: ASPIRIN 81 MG CHEWABLE TABLET PO SCH (08:37)
[2018-04-14] MEDS: INDOMETHACIN 25 MG CAPSULE PO SCH ×3 (08:37→20:56)
[2018-04-14] MEDS: COLD CREAM, SKIN EMOLLIENT 340 GM JAR TP SCH ×2 (08:37→20:56)
[2018-04-14] MEDS: OMEPRAZOLE 10 MG CAPSULE PO SCH (08:37)
[2018-04-14] MEDS: CYCLOBENZAPRINE HCL 10 MG TABLET PO SCH ×3 (08:37→20:56)
[2018-04-14] MEDS: DICLOFENAC SODIUM 1% 100 GM GEL [4GM] TP SCH ×3 (08:38→20:56)
[2018-04-14 15:46] VITALS: BP 109/63
[2018-04-14] MEDS: POLYETHYLENE GLYCOL 3350 17 GM PACKET PO SCH (16:20)
[2018-04-14] MEDS: DOCUSATE SODIUM 283 MG/5 ML MINI-ENEMA PR SCH (18:03)
[2018-04-14] MEDS: DIAZEPAM 2 MG TABLET PO SCH (20:56)
[2018-04-15 05:10] VITALS: BP 106/63
[2018-04-15 07:30] VITALS: BP 118/63
[2018-04-15] MEDS: OMEPRAZOLE 10 MG CAPSULE PO SCH (07:56)
[2018-04-15] MEDS: ENOXAPARIN SODIUM 40 MG/0.4 ML PF SYRINGE SQ SCH (07:56)
[2018-04-15] MEDS: CYCLOBENZAPRINE HCL 10 MG TABLET PO SCH ×3 (07:57→21:59)
[2018-04-15] MEDS: ASPIRIN 81 MG CHEWABLE TABLET PO SCH (07:57)
[2018-04-15] MEDS: DICLOFENAC SODIUM 1% 100 GM GEL [4GM] TP SCH ×3 (07:57→21:59)
[2018-04-15] MEDS: INDOMETHACIN 25 MG CAPSULE PO SCH ×3 (07:57→21:59)
[2018-04-15] MEDS: COLD CREAM, SKIN EMOLLIENT 340 GM JAR TP SCH ×2 (07:58→21:59)
[2018-04-15] MEDS: NYSTATIN 15 GM POWDER BOTTLE TP SCH ×2 (07:58→21:59)
[2018-04-15 15:23] VITALS: BP 122/74
[2018-04-15] MEDS: POLYETHYLENE GLYCOL 3350 17 GM PACKET PO SCH (15:34)
[2018-04-15] MEDS: DOCUSATE SODIUM 283 MG/5 ML MINI-ENEMA PR SCH ×2 (18:00→18:25)
[2018-04-15] MEDS: DIAZEPAM 2 MG TABLET PO SCH (21:59)
[2018-04-16 05:14] VITALS: BP 124/70
[2018-04-16 07:45] VITALS: BP 114/72
[2018-04-16] MEDS: ENOXAPARIN SODIUM 40 MG/0.4 ML PF SYRINGE SQ SCH (09:11)
[2018-04-16] MEDS: DICLOFENAC SODIUM 1% 100 GM GEL [4GM] TP SCH ×3 (09:12→20:15)
[2018-04-16] MEDS: ASPIRIN 81 MG CHEWABLE TABLET PO SCH (09:12)
[2018-04-16] MEDS: NYSTATIN 15 GM POWDER BOTTLE TP SCH ×2 (09:12→20:14)
[2018-04-16] MEDS: INDOMETHACIN 25 MG CAPSULE PO SCH ×3 (09:12→20:11)
[2018-04-16] MEDS: OMEPRAZOLE 10 MG CAPSULE PO SCH (09:12)
[2018-04-16] MEDS: CYCLOBENZAPRINE HCL 10 MG TABLET PO SCH ×3 (09:13→20:14)
[2018-04-16] MEDS: COLD CREAM, SKIN EMOLLIENT 340 GM JAR TP SCH ×2 (09:13→20:15)
[2018-04-16 14:58] LABS: BASOPHILS % (AUTO) 0.4 % (0.0-2.0); EOSINOPHILS % (AUTO) 1.2 % (1.0-6.0); HEMATOCRIT 43.2 % (41-53); HEMOGLOBIN 14.6 g/dL (13.5-17.5); LYMPHOCYTES # (AUTO) 1.9 K/uL (1.0-4.8); LYMPHOCYTES % (AUTO) 27.2 % (22.0-44.0); MEAN CORPUSCULAR HEMOGLOBIN 28.4 pg (26.0-34.0); MEAN CORPUSCULAR HGB CONC 33.8 G/dL (31.0-37.0); MEAN CORPUSCULAR VOLUME 84 fL (80-100); MONOCYTES # (AUTO) 0.5 K/uL (0.1-1.0); MONOCYTES % (AUTO) 7.4 % (2.0-9.0); NEUTROPHILS # (AUTO) 4.4 K/uL (1.8-7.7); NEUTROPHILS % (AUTO) 63.8 % (40.0-70.0); PLATELET COUNT (AUTO) 235 K/uL (150-450); RED BLOOD CELL COUNT(AUTO) 5.15 MIL/uL (4.50-5.90); RED CELL DISTRIBUTION WIDTH 14.2 % (11.5-14.5)
[2018-04-16 15:00] VITALS: BP 121/76
[2018-04-16 15:06] LABS: ANION GAP 5 mmol/L (8-16); CALCIUM, TOTAL 9.1 mg/dL (8.8-10.5); CARBON DIOXIDE 31 mmol/L (22-29); CHLORIDE 100 mmol/L (98-107); CREATININE 0.69 mg/dL (0.60-1.30); GLOMERULAR FILTR. RATE CALC > 60 mL/min (>60); GLUCOSE,RANDOM 112 mg/dL (70-110); POTASSIUM 3.9 mmol/L (3.5-5.1); SODIUM SERUM 136 mmol/L (136-145); UREA NITROGEN, BLOOD 11 mg/dL (7-18)
[2018-04-16] MEDS: POLYETHYLENE GLYCOL 3350 17 GM PACKET PO SCH (16:00)
[2018-04-16] MEDS: DOCUSATE SODIUM 283 MG/5 ML MINI-ENEMA PR SCH (19:01)
[2018-04-16] MEDS: DIAZEPAM 2 MG TABLET PO SCH (20:14)
[2018-04-16] MEDS ORDERED: ASPI81TA39 PO (20:50)
[2018-04-16] MEDS ORDERED: OMEP20 PO (20:50)
[2018-04-16] MEDS ORDERED: DICL4100G TP (20:50)
[2018-04-16] MEDS ORDERED: INDO50 PO (20:50)
[2018-04-16] MEDS ORDERED: CYCL10 PO (20:50)
[2018-04-16] MEDS ORDERED: MIRALAX PO ×2 (20:50→21:22)
[2018-04-16] MEDS ORDERED: DIAZ2 PO (20:50)
[2018-04-17 05:00] VITALS: BP 114/69
[2018-04-17 07:30] VITALS: BP 129/66
[2018-04-17] MEDS: INDOMETHACIN 25 MG CAPSULE PO SCH (09:34)
[2018-04-17] MEDS: DICLOFENAC SODIUM 1% 100 GM GEL [4GM] TP SCH (09:34)
[2018-04-17] MEDS: ENOXAPARIN SODIUM 40 MG/0.4 ML PF SYRINGE SQ SCH (09:34)
[2018-04-17] MEDS: NYSTATIN 15 GM POWDER BOTTLE TP SCH (09:34)
[2018-04-17] MEDS: ASPIRIN 81 MG CHEWABLE TABLET PO SCH (09:35)
[2018-04-17] MEDS: COLD CREAM, SKIN EMOLLIENT 340 GM JAR TP SCH (09:35)
[2018-04-17] MEDS: CYCLOBENZAPRINE HCL 10 MG TABLET PO SCH (09:35)
[2018-04-17] MEDS: OMEPRAZOLE 10 MG CAPSULE PO SCH (09:35)
== END 2018-04-17 15:15 | disposition home health service (06) | DRG 85 ==
LOC: 2WR 15:20
PROVIDERS: ADMIT Physical Medicine & Rehabilitation; ATTEND Physical Medicine & Rehabilitation
PROC: 0DB68ZX Excision of Stomach, Via Natural or Artificial Opening Endoscopic, Diagnostic (ICD-10-PCS; 2018-03-18)
PROC: 0DP68UZ Removal of Feeding Device from Stomach, Via Natural or Artificial Opening Endoscopic (ICD-10-PCS; principal; 2018-03-18 12:15)
DX: S06.5X0A Traumatic subdural hemorrhage without loss of consciousness, initial encounter (principal); G82.50 Quadriplegia, unspecified; G93.40 Encephalopathy, unspecified; J98.11 Atelectasis; K59.2 Neurogenic bowel, not elsewhere classified; N39.0 Urinary tract infection, site not specified; I82.622 Acute embolism and thrombosis of deep veins of left upper extremity; B37.0 Candidal stomatitis; Z43.1 Encounter for attention to gastrostomy; M62.838 Other muscle spasm; R13.12 Dysphagia, oropharyngeal phase; N31.9 Neuromuscular dysfunction of bladder, unspecified; R41.89 Other symptoms and signs involving cognitive functions and awareness; W19.XXXA Unspecified fall, initial encounter; D64.9 Anemia, unspecified; E11.65 Type 2 diabetes mellitus with hyperglycemia; E78.5 Hyperlipidemia, unspecified; E87.6 Hypokalemia; H50.40 Unspecified heterotropia; K21.9 Gastro-esophageal reflux disease without esophagitis; K25.9 Gastric ulcer, unspecified as acute or chronic, without hemorrhage or perforation; K29.70 Gastritis, unspecified, without bleeding; E78.00 Pure hypercholesterolemia, unspecified; K59.00 Constipation, unspecified; L30.9 Dermatitis, unspecified; Z82.49 Family history of ischemic heart disease and other diseases of the circulatory system; Z87.440 Personal history of urinary (tract) infections; Z91.81 History of falling; Z79.899 Other long term (current) drug therapy
CPT/HCPCS: 70450; 71260; 73700; 76705; 78300; 80074; 83036; 83605; 84145; 85300; 85301; 85302; 85305; 85306; 85613; 85732; 86677; 86706; 86707; 87040; 87070; 87081; 87086; 87205; 87340; 87350; 88305; 88312; 92507; 92508; 92523; 92526; 93970; 97032; 97110; 97112; 97140; 97163; 97167; 97530; 97535; 99366; A9503; J0692; J0696; J1650; J2543; J7030; J7040; J7050; J7060